=== PATIENT | female | born 1950 | race Caucasian/White ===

== ENCOUNTER 2022-08-01 19:03 | Inpatient (IN) | payer MEDICARE, OTHER ==
[~2022-08-01] VITALS: Ht 157.5 cm; Wt 85.7 kg
--- NOTE | 2022-08-01 19:43 | NUR ---
JAMES FROM [facility] C/O FEELING DEPRESSED. DENIES SUICIDAL.CODE STATUS POLST DNR. PT A/OX2. TOLERATING R/A WELL WITH NO SOB. SAFETY MEASURES AND SITTER AT PT'S BEDSIDE
--- NOTE | 2022-08-01 20:18 | NUR ---
CLINIC LPN AT PT'S BEDSIDE
[2022-08-01 20:57] LABS: BASOPHILS % (AUTO) 0.6 % (0.0-2.0); EOSINOPHILS % (AUTO) 2.8 % (0.0-6.0); HEMATOCRIT 36 % (33-45); HEMOGLOBIN 11.5 g/dL (11.5-14.8); LYMPHOCYTES # (AUTO) 1.3 K/uL (0.8-4.8); LYMPHOCYTES % (AUTO) 17.5 % (20.0-44.0); MEAN CORPUSCULAR HGB CONC 32 g/dl (31.0-36.0); MEAN CORPUSCULAR VOLUME 102 fL (82-100); MONOCYTES # (AUTO) 0.4 K/uL (0.1-1.30); MONOCYTES % (AUTO) 5.7 % (2.0-12.0); NEUTROPHILS # (AUTO) 5.4 K/uL (1.8-8.9); NEUTROPHILS % (AUTO) 73.4 % (43.0-81.0); PLATELET COUNT (AUTO) 214 K/uL (150-450); RED BLOOD CELL COUNT(AUTO) 3.55 MIL/uL (4.0-5.2); WHITE BLOOD COUNT (AUTO) 7.3 K/uL (4.3-11.0)
--- NOTE | 2022-08-01 21:15 | NUR ---
Benson elizabeth in EDM - 08/01/22 at 2249 by SRIRAM JAMES FROM [facility] C/O FEELING DEPRESSED. DENIES SUICIDAL.CODE STATUS POLST DNR. PT A/OX2. TOLERATING R/A WELL WITH NO SOB. SAFETY MEASURES AND SITTER AT PT'S BEDSIDE
[2022-08-01 21:23] LABS: ALANINE AMINOTRANSFERASE 15 U/L (12-78); ALBUMIN 3.9 g/dL (3.4-5.0); ALCOHOL, BLOOD < 3 mg/dL (0-0); ALKALINE PHOSPHATASE 161 U/L (46-116); ASPARTATE AMINOTRANSFERASE 8 U/L (15-37); BILIRUBIN,DIRECT 0.1 mg/dL (0.0-0.2); BILIRUBIN,TOTAL 0.2 mg/dL (0.2-1.0); CALCIUM, SERUM 8.4 mg/dL (8.5-10.1); CARBON DIOXIDE 26 mmol/L (21-32); CHLORIDE 104 mmol/L (98-107); CREATININE 3.7 mg/dL (0.6-1.3); GLUCOSE 268 mg/dL (74-106); POTASSIUM 5.3 mmol/L (3.5-5.1); SODIUM SERUM 136 mmol/L (136-145); TOTAL PROTEIN, SERUM 7.7 g/dL (6.4-8.2); UREA NITROGEN, BLOOD 52 mg/dL (7-18)
[2022-08-01 21:34] LABS: ACETAMINOPHEN 0 ug/ml (10-30)
[2022-08-01 22:27] LABS: BAND % (MANUAL) 3 % (0.0-5.0); LYMPHOCYTES % (MANUAL) 18 % (16-48); MONOCYTES % (MANUAL) 2 % (0-11.0); NEUTROPHILS % (MANUAL) 77 (42-76)
--- NOTE | 2022-08-01 22:29 | NUR ---
AUTOMATION TECH AT PT'S BEDSIDE
--- NOTE | 2022-08-01 22:45 | NUR ---
URINE COLLECTED AND SENT TO LAB
[2022-08-01 23:11] LABS: BILIRUBIN,URINE NEGATIVE (NEGATIVE); COLOR,URINE YELLOW (YELLOW); LEUKOCYTE ESTERASE ,URINE LARGE (NEGATIVE); NITRITE, URINE NEGATIVE (NEGATIVE); PROTEIN,URINE 100 mg/dl (NEGATIVE); UGLUCOSE NEGATIVE (NEGATIVE); UROBILINOGEN,URINE 0.2 EU/dL (0.2)
[2022-08-01 23:17] LABS: BACTERIA,URINE Many /HPF (None Seen); SQUAMOUS EPITHELIAL CELL,UR Few /HPF (None Seen); WBC,URINE 21-50 /HPF (0-3)
[2022-08-01] MEDS ORDERED: CEFTRIAXONE 1GM BAG (ER ONLY) 1 GM/50 ML PIGGYBACK IV ONE (23:30)
[2022-08-02] MEDS ORDERED: BLOOD SUGAR DIAGNOSTIC 1 EACH STRIP IN SCH
[2022-08-02] MEDS ORDERED: ONDANSETRON HCL/PF 4 MG/2 ML VIAL IVP PRN
[2022-08-02] MEDS ORDERED: INSULIN REGULAR, HUMAN 100 UNIT/ML 3 ML VIAL SQ PRN
[2022-08-02] MEDS ORDERED: MORPHINE SULFATE INJ 2 MG/ML DISP.SYRIN IV PRN
[2022-08-02] MEDS ORDERED: INSU100I26 SQ ×2 (00:27)
[2022-08-02] MEDS ORDERED: ASPI-1169 PO (00:27)
[2022-08-02] MEDS ORDERED: HYDR-4075 PO (00:27)
[2022-08-02] MEDS ORDERED: ESCI5TAB PO (00:27)
[2022-08-02] MEDS ORDERED: FOLI0.8T23 PO (00:27)
[2022-08-02] MEDS ORDERED: LINA5TAB PO (00:27)
[2022-08-02] MEDS ORDERED: METO50TA16 PO (00:27)
[2022-08-02] MEDS ORDERED: SEVE800T8 PO (00:27)
[2022-08-02] MEDS ORDERED: DOCU-141 PO (00:27)
[2022-08-02] MEDS ORDERED: GABA-532 PO (00:27)
[2022-08-02] MEDS ORDERED: ISOS30TA86 PO (00:27)
[2022-08-02] MEDS ORDERED: SENN-261 PO (00:27)
[2022-08-02] MEDS ORDERED: AMLO-213 PO (00:27)
[2022-08-02] MEDS ORDERED: CEFTRIAXONE 1GM BAG (ER ONLY) 50 ML IV ONE (00:32)
--- NOTE | 2022-08-02 01:04 | NUR ---
REPORT GIVEN TO ABIOLA GUAMAN.
[2022-08-02] MEDS: *INSULIN REGULAR(HUMULIN R)HUM 100 UNIT/ML VIAL SQ PRN ×2 (01:28→22:21)
[2022-08-02] MEDS: BLOOD SUGAR DIAGNOSTIC 1 EACH STRIP IN SCH ×5 (01:29→22:13)
[2022-08-02] MEDS ORDERED: DEXTROSE 50%-WATER 50 ML DISP.SYRIN IV PRN ×2 (01:30)
--- NOTE | 2022-08-02 01:36 | NUR ---
PT TRANSFERRING TO 3W VIA ACLS PROTOCOL. VSS. ALL BELONGINGS WITH PT.
[2022-08-02] MEDS: ACETAMINOPHEN 325 MG TABLET PO PRN (02:04)
[2022-08-02] MEDS: hydrALAZINE HCL IV 20 MG VIAL IV PRN (02:04)
[2022-08-02 02:33] VITALS: BP 175/65
--- NOTE | 2022-08-02 02:35 | NUR ---
ADMISSION NOTES patient brought up in unit at around 0133, accompanied by 1 er personnel, via [employer]. Patient is a/ox3. no s/s of apparent distress on room air. c/o headache and asking for Tylenol. patient wishes to be DNR/DNI and has POLST on chart. denies any thoughts of harming self. patient has lt. sided deficit from hx of CVA. Sacral wound picture taken. lt. hand #24g flushing well. rt. cw HD cath noted to be intact, dressing clean and dry. belonging checked, pt. wearing upper denture. patient reports having 4 COVID shots in the SNF but denies having flu and pneumonia immunization. patient refused immunizations. oriented in the unit and the use of call light, safety in place. will continue with patient's plan of care. patient emily NSR on tele monitor with 68 bpm.
--- NOTE | 2022-08-02 02:45 | NUR ---
bp 175/65 with c/o headache, given apresoline 10mg as ordered PRN and tylenol per patient request. will monitor and re-assess.
--- NOTE | 2022-08-02 02:47 | NUR ---
bp re-check 131/44, hr-62. patient states relief of headache.
[2022-08-02 02:52] VITALS: BP 131/44
[2022-08-02] MEDS: INSULIN REGULAR, HUMAN 100 UNIT/ML 3 ML VIAL SQ PRN ×2 (06:40→12:26)
[2022-08-02 06:53] LABS: BASOPHILS % (AUTO) 0.4 % (0.0-2.0); EOSINOPHILS % (AUTO) 3.2 % (0.0-6.0); HEMATOCRIT 36 % (33-45); HEMOGLOBIN 11.6 g/dL (11.5-14.8); LYMPHOCYTES # (AUTO) 1.1 K/uL (0.8-4.8); LYMPHOCYTES % (AUTO) 16.4 % (20.0-44.0); MEAN CORPUSCULAR HGB CONC 32 g/dl (31.0-36.0); MEAN CORPUSCULAR VOLUME 102 fL (82-100); MONOCYTES # (AUTO) 0.4 K/uL (0.1-1.30); MONOCYTES % (AUTO) 6.9 % (2.0-12.0); NEUTROPHILS # (AUTO) 4.7 K/uL (1.8-8.9); NEUTROPHILS % (AUTO) 73.1 % (43.0-81.0); PLATELET COUNT (AUTO) 199 K/uL (150-450); RED BLOOD CELL COUNT(AUTO) 3.56 MIL/uL (4.0-5.2); WHITE BLOOD COUNT (AUTO) 6.4 K/uL (4.3-11.0)
[2022-08-02 07:17] LABS: ALANINE AMINOTRANSFERASE 11 U/L (12-78); ALBUMIN 3.5 g/dL (3.4-5.0); ALKALINE PHOSPHATASE 137 U/L (46-116); ASPARTATE AMINOTRANSFERASE 10 U/L (15-37); BILIRUBIN,TOTAL 0.3 mg/dL (0.2-1.0); CALCIUM, SERUM 8.6 mg/dL (8.5-10.1); CARBON DIOXIDE 24 mmol/L (21-32); CHLORIDE 105 mmol/L (98-107); CREATININE 3.8 mg/dL (0.6-1.3); GLUCOSE 196 mg/dL (74-106); MAGNESIUM 2.1 mg/dL (1.8-2.4); PHOSPHORUS 4.8 mg/dL (2.5-4.9); POTASSIUM 5.2 mmol/L (3.5-5.1); SODIUM SERUM 138 mmol/L (136-145); UREA NITROGEN, BLOOD 56 mg/dL (7-18)
[2022-08-02 08:00] VITALS: BP 156/71
[2022-08-02] MEDS: CEFTRIAXONE 1 G in IV D5W 50 ML IV SCH (10:26)
[2022-08-02] MEDS: VIT B CMPLX 3/FA/VIT C/BIOTIN 1 TAB TABLET PO SCH (10:27)
[2022-08-02] MEDS: SEVELAMER CARBONATE 800 MG TABLET PO SCH ×3 (10:27→17:00)
[2022-08-02] MEDS: ISOSORBIDE MONONITRATE (30MG) 30 MG TAB.SR.24H PO SCH (10:28)
[2022-08-02] MEDS: ASPIRIN 81 MG TAB.CHEW PO SCH (10:28)
[2022-08-02] MEDS: GABAPENTIN 100 MG CAPSULE PO SCH ×2 (10:29→22:23)
[2022-08-02] MEDS: LINAGLIPTIN 5 MG TABLET PO SCH (10:29)
[2022-08-02] MEDS: METOPROLOL TARTRATE 50 MG TABLET PO SCH ×2 (10:29→17:00)
[2022-08-02] MEDS: DOCUSATE SODIUM 100 MG CAPSULE PO SCH ×2 (10:29→17:00)
[2022-08-02] MEDS: AMLODIPINE BESYLATE 10 MG TABLET PO SCH (10:31)
[2022-08-02] MEDS: INSULIN GLARGINE, 100 UNIT/ML CARTRIDGE SQ SCH ×2 (10:56→22:22)
[2022-08-02] MEDS: HEPARIN SODIUM, PORCINE 5000 UNITS/1 ML VIAL SQ SCH ×2 (10:57→22:22)
[2022-08-02 12:00] VITALS: BP 144/57
--- NOTE | 2022-08-02 18:53 | NUR ---
RN CLOSING NOTE PATIENT RECEIVED ON SHIFT IN BED AND AWAKE. A/O X3-4 AND ABLE TO VERBALIZE ALL NEEDS. IV ACCESS TO L-HAND REMAINED IN TACT AND PATENT ON SHIFT. SL AT THIS TIME. PATIENT REMAINS BEDRIDDEN LEFT SIDE IS WEAK/FLACCID. TOLERATED ALL MEALS AND MEDICATIONS WELL ON SHIFT. BLOOD SUGAR LEVELS 317 @ 1200 WITH 16 UNITS OF COVERAGE & 170 @ 1700 WITH NO COVERAGE GIVEN PATIENT WAS RECEIVING HEMODIALYSIS AT BEDSIDE. TOLERATING WELL WITH 1 MORE HOUR LEFT ON MACHINE. WILL ENDORSE TO RECEIVING NURSE. IV ANTIBIOTICS GIVEN ON SHIFT. TOLERATED WELL WITH NO S/SX OF ADVERSE REACTIONS. SAFETY MEASURES INTACT, CALL LIGHT WITHIN REACH. WILL CONT TO MONITOR
[2022-08-02 20:00] VITALS: BP 114/43
--- NOTE | 2022-08-02 20:32 | NUR ---
RN OPENING NOTE PATIENT AWAKE IN BED. A/OX3. NO S/S OF DISTRESS, BREATHING WITHOUT DIFFICULTY ON ROOM AIR. L-HAND #24 SL INTACT AND PATENT. SAFETY MEASURES IN PLACE: BED LOCKED, AT LOWEST POSITION, RAILS UP X2, CALL HARVEY WITHIN REACH. WILL CONTINUE TO MONITOR THE PATIENT.
[2022-08-02] MEDS: ESCITALOPRAM OXALATE (10 MG) 10 MG TABLET PO SCH (22:23)
[2022-08-03] VITALS: BP 117/48
[2022-08-03] MEDS: INSULIN REGULAR, HUMAN 100 UNIT/ML 3 ML VIAL SQ PRN ×3 (06:11→17:30)
--- NOTE | 2022-08-03 06:32 | NUR ---
RN CLOSING NOTE PATIENT AWAKE IN BED WATCHING TV. A/OX4. NO S/S OF DISTRESS, BREATHING WITHOUT DIFFICULTY ON ROOM AIR. RCW WITHOUT BLEEDING OR S/S OF DISLODGMENT. TELE READS SR 64 W/ 1ST DEGREE BLOCK. SAFETY MEASURES IN PLACE: BED LOCKED AND AT LOWEST POSITION, RAILS UP X2, CALL HARVEY WITHIN REACH. WILL ENDORSE TO NEXT SHIFT FOR KODY.
[2022-08-03] MEDS: BLOOD SUGAR DIAGNOSTIC 1 EACH STRIP IN SCH ×4 (06:34→21:43)
[2022-08-03 06:36] LABS: BASOPHILS % (AUTO) 0.3 % (0.0-2.0); EOSINOPHILS % (AUTO) 2.6 % (0.0-6.0); HEMATOCRIT 36 % (33-45); HEMOGLOBIN 11.7 g/dL (11.5-14.8); LYMPHOCYTES # (AUTO) 0.8 K/uL (0.8-4.8); LYMPHOCYTES % (AUTO) 12.4 % (20.0-44.0); MEAN CORPUSCULAR HGB CONC 33 g/dl (31.0-36.0); MEAN CORPUSCULAR VOLUME 100 fL (82-100); MONOCYTES # (AUTO) 0.4 K/uL (0.1-1.30); MONOCYTES % (AUTO) 6.4 % (2.0-12.0); NEUTROPHILS # (AUTO) 5.1 K/uL (1.8-8.9); NEUTROPHILS % (AUTO) 78.3 % (43.0-81.0); PLATELET COUNT (AUTO) 184 K/uL (150-450); RED BLOOD CELL COUNT(AUTO) 3.55 MIL/uL (4.0-5.2); WHITE BLOOD COUNT (AUTO) 6.5 K/uL (4.3-11.0)
[2022-08-03 07:35] LABS: CALCIUM, SERUM 8.4 mg/dL (8.5-10.1); CARBON DIOXIDE 26 mmol/L (21-32); CHLORIDE 101 mmol/L (98-107); CREATININE 2.7 mg/dL (0.6-1.3); GLUCOSE 135 mg/dL (74-106); MAGNESIUM 1.8 mg/dL (1.8-2.4); PHOSPHORUS 3.2 mg/dL (2.5-4.9); POTASSIUM 4.6 mmol/L (3.5-5.1); SODIUM SERUM 134 mmol/L (136-145); UREA NITROGEN, BLOOD 37 mg/dL (7-18)
[2022-08-03 08:00] VITALS: BP 151/64
--- NOTE | 2022-08-03 08:00 | NUR ---
RN NOTE- PATIENT AWAKE IN BED. A/OX3. NO S/S OF DISTRESS, BREATHING WITHOUT DIFFICULTY ON ROOM AIR. NEW HEP LOCK PLACED SKYE. #22G SAFETY MEASURES IN PLACE: BED LOCKED, AT LOWEST POSITION, RAILS UP X2, CALL HARVEY WITHIN REACH. WILL CONTINUE TO MONITOR / ASSIST
[2022-08-03] MEDS: AMLODIPINE BESYLATE 10 MG TABLET PO SCH (09:25)
[2022-08-03] MEDS: VIT B CMPLX 3/FA/VIT C/BIOTIN 1 TAB TABLET PO SCH (09:25)
[2022-08-03] MEDS: LINAGLIPTIN 5 MG TABLET PO SCH (09:25)
[2022-08-03] MEDS: SEVELAMER CARBONATE 800 MG TABLET PO SCH ×4 (09:25→17:19)
[2022-08-03] MEDS: ISOSORBIDE MONONITRATE (30MG) 30 MG TAB.SR.24H PO SCH (09:26)
[2022-08-03] MEDS: METOPROLOL TARTRATE 50 MG TABLET PO SCH ×3 (09:26→17:20)
[2022-08-03] MEDS: GABAPENTIN 100 MG CAPSULE PO SCH ×2 (09:27→21:42)
[2022-08-03] MEDS: DOCUSATE SODIUM 100 MG CAPSULE PO SCH ×3 (09:27→17:20)
[2022-08-03] MEDS: ASPIRIN 81 MG TAB.CHEW PO SCH (09:27)
[2022-08-03] MEDS: HEPARIN SODIUM, PORCINE 5000 UNITS/1 ML VIAL SQ SCH ×2 (09:27→21:42)
[2022-08-03] MEDS: INSULIN GLARGINE, 100 UNIT/ML CARTRIDGE SQ SCH ×2 (09:31→21:48)
[2022-08-03] MEDS: CEFTRIAXONE 1 G in IV D5W 50 ML IV SCH (10:13)
[2022-08-03 12:00] VITALS: BP 152/62
[2022-08-03 16:00] VITALS: BP 122/57
--- NOTE | 2022-08-03 17:24 | NUR ---
RN NOTE-1700 RX HELD PT HAVING HD
--- NOTE | 2022-08-03 19:18 | NUR ---
RN CLOSING NOTE- HD CONTINUES, PATIENT AWAKE IN BED. A/OX3. NO S/S OF DISTRESS, BREATHING WITHOUT DIFFICULTY ON ROOM AIR. NEW HEP LOCK PLACED SKYE. #22G SAFETY MEASURES IN PLACE: BED LOCKED, AT LOWEST POSITION, RAILS UP X2, CALL HARVEY WITHIN REACH. WILL CONTINUE TO MONITOR / ASSIST
--- NOTE | 2022-08-03 19:30 | NUR ---
MEDICAL ECONOMICS CONSULTANT OPENING NOTES RECEIVED PATIENT LYING IN BED WITH EYES CLOSED. EASY TO AROUSE. UNDERGOING HD. A/OX3. NOT IN APPARENT DISTRESS. BREATHING EVEN AND NON-LABORED ON ROOM AIR. HAS LEFT UPPER ARM IV ACCESS #22G AND SALINE LOCKED. NO S/S OF INFILTRATION NOTED. SAFETY MEASURES IN PLACE: BED LOCKED AND IN LOWEST POSITION, SIDE RAILS UP X2, CALL HARVEY WITHIN REACH. WILL CONTINUE TO POC. Addendum: 08/03/22 at 2039 by March PORFIRIO RN ON TELE MONITOR READING SINUS RHYTHM AT 65 BPM.
[2022-08-03 20:00] VITALS: BP 114/62
--- NOTE | 2022-08-03 20:00 | NUR ---
DETECTIVE INVESTIGATOR NOTES HD DONE. 1.5L OUT, BP 115/63, HR 59.
[2022-08-03] MEDS: ESCITALOPRAM OXALATE (10 MG) 10 MG TABLET PO SCH (21:49)
[2022-08-03] MEDS: *INSULIN REGULAR(HUMULIN R)HUM 100 UNIT/ML VIAL SQ PRN (21:59)
[2022-08-04] VITALS: BP 166/55
--- NOTE | 2022-08-04 00:15 | NUR ---
CLAIM EXAMINER NOTES NOTIFIED CN ULISSES PT BP 166/55. PER CN, NO NEED TO NOTIFY MD, WILL CONTINUE TO MONITOR.
[2022-08-04 04:00] VITALS: BP 152/57
[2022-08-04] MEDS: BLOOD SUGAR DIAGNOSTIC 1 EACH STRIP IN SCH ×4 (06:55→21:23)
[2022-08-04] MEDS: INSULIN REGULAR, HUMAN 100 UNIT/ML 3 ML VIAL SQ PRN ×3 (06:57→16:39)
--- NOTE | 2022-08-04 07:00 | NUR ---
PERFORMANCE TEST ARCHITECT CLOSING NOTES PATIENT LYING IN BED AWAKE, ABLE TO VERBALIZE NEEDS. A/O X3, PATIENT INSISTS ON GOING HOME. EXPLAINED SHE NEEDS TO WAIT FOR MD ORDER. VERBALIZED UNDERSTANDING. NO SOB OR NOTED, TOLERATING ROOM AIR WELL. DENIES PAIN AT THIS TIME. AFEBRILE. ON TELE MONITOR READING SINUS RHYTHM AT 63 BPM. HAS LEFT UPPER ARM IV ACCESS #22G AND SALINE LOCKED. INTACT, PATENT AND FLUSHING. ALL DUE MEDS GIVEN AND NEEDS ATTENDED. SAFETY MEASURES MAINTAINED: BED LOCKED AND IN LOWEST POSITION, SIDE RAILS UP X2, CALL LIGHT WITHIN REACH. WILL ENDORSE FOR KODY.
--- NOTE | 2022-08-04 07:30 | NUR ---
COMPTOMETER OPERATOR OPENING NOTES: RECEIVED PATIENT ASLEEP BUT EASILY ROUSED, ABLE TO VERBALIZE NEEDS. A/O X3 WITH EPISODED OF FORGETFULNESS AND CONFUSION. NO S/S OF SOB NOTED, TOLERATING ROOM AIR WELL. DENIES PAIN AT THIS TIME. ON TELE MONITOR READING SINUS RHYTHM AT 66 BPM. IV ACCESS @ LFA #22G AND SALINE LOCKED. INTACT, PATENT AND FLUSHING. R CW HD CATH NOTED. SAFETY MEASURES MAINTAINED: BED LOCKED AND IN LOWEST POSITION, SIDE RAILS UP X2, CALL LIGHT WITHIN REACH, WILL CARRY OUT PLAN OF CARE DURING SHIFT. .
[2022-08-04 07:57] LABS: CALCIUM, SERUM 8.5 mg/dL (8.5-10.1); CARBON DIOXIDE 24 mmol/L (21-32); CHLORIDE 97 mmol/L (98-107); CREATININE 2.4 mg/dL (0.6-1.3); GLUCOSE 164 mg/dL (74-106); MAGNESIUM 1.9 mg/dL (1.8-2.4); PHOSPHORUS 3.6 mg/dL (2.5-4.9); POTASSIUM 5.3 mmol/L (3.5-5.1); SODIUM SERUM 130 mmol/L (136-145); UREA NITROGEN, BLOOD 28 mg/dL (7-18)
[2022-08-04 08:00] VITALS: BP 134/58
[2022-08-04] MEDS: AMLODIPINE BESYLATE 10 MG TABLET PO SCH (09:00)
[2022-08-04] MEDS: INSULIN GLARGINE, 100 UNIT/ML CARTRIDGE SQ SCH ×2 (09:00→21:28)
[2022-08-04] MEDS: METOPROLOL TARTRATE 50 MG TABLET PO SCH ×2 (09:00→16:27)
[2022-08-04] MEDS: CEFTRIAXONE 1 G in IV D5W 50 ML IV SCH (09:01)
[2022-08-04] MEDS: GABAPENTIN 100 MG CAPSULE PO SCH ×2 (09:02→21:11)
[2022-08-04] MEDS: ASPIRIN 81 MG TAB.CHEW PO SCH (09:02)
[2022-08-04] MEDS: ISOSORBIDE MONONITRATE (30MG) 30 MG TAB.SR.24H PO SCH (09:10)
[2022-08-04] MEDS: DOCUSATE SODIUM 100 MG CAPSULE PO SCH ×2 (09:11→16:27)
[2022-08-04] MEDS: SEVELAMER CARBONATE 800 MG TABLET PO SCH ×3 (09:11→16:26)
[2022-08-04] MEDS: LINAGLIPTIN 5 MG TABLET PO SCH (09:11)
[2022-08-04] MEDS: VIT B CMPLX 3/FA/VIT C/BIOTIN 1 TAB TABLET PO SCH (09:11)
[2022-08-04] MEDS: HEPARIN SODIUM, PORCINE 5000 UNITS/1 ML VIAL SQ SCH ×2 (09:20→21:28)
[2022-08-04 11:39] VITALS: BP 141/51
[2022-08-04 11:48] LABS: BASOPHILS % (AUTO) 0.5 % (0.0-2.0); EOSINOPHILS % (AUTO) 1.9 % (0.0-6.0); HEMATOCRIT 36 % (33-45); HEMOGLOBIN 11.7 g/dL (11.5-14.8); LYMPHOCYTES # (AUTO) 0.9 K/uL (0.8-4.8); LYMPHOCYTES % (AUTO) 15.1 % (20.0-44.0); MEAN CORPUSCULAR HGB CONC 33 g/dl (31.0-36.0); MEAN CORPUSCULAR VOLUME 100 fL (82-100); MONOCYTES # (AUTO) 0.4 K/uL (0.1-1.30); MONOCYTES % (AUTO) 5.9 % (2.0-12.0); NEUTROPHILS # (AUTO) 4.7 K/uL (1.8-8.9); NEUTROPHILS % (AUTO) 76.6 % (43.0-81.0); PLATELET COUNT (AUTO) 159 K/uL (150-450); RED BLOOD CELL COUNT(AUTO) 3.59 MIL/uL (4.0-5.2); WHITE BLOOD COUNT (AUTO) 6.2 K/uL (4.3-11.0)
[2022-08-04] MEDS: ACETAMINOPHEN 325 MG TABLET PO PRN (12:59)
[2022-08-04 16:19] VITALS: BP 126/55
--- NOTE | 2022-08-04 16:50 | NUR ---
SS note: SS consult for possible SI. The pt. is a 72 year old Chinese female who was BIBRA after pt. reportedly made suicidal remarks and wrapped the a cord around her neck. SW met with pt. at bedside. The pt. is alert 7 oriented x 4 makes good eye contact. The pt. appears well-groomed with depressed mood & affect. SW assessed for SI. The pt. reports that she has gotten into an argument with her sister, Cortney Hidalgo [phone] while she visited her at her SNF. The pt. did not want to disclose what the verbal argument was about but she stated she "was not really suicidal" or intended to hurt or kill herself. However, pt. admits that she did tell her sister, "so that this all ends, I will just kill myself" and pt. admits she wrapped the call light around her neck and did not actually pull the cord or intend to. Pt. states she just wanted to get reaction from her sister. The pt. denies current SI/HI and denies hallucinations.The pt. has fair insight and stated she has seen a psychiatrist in the past who prescribed her medication for symptoms of depression. Pt. states she is complaint with the medication and she feels it does help her. SW confirmed with pt.'s nurse and pt. is on Lexapro 2.5 mg. DC Plan: The pt. states she wished to return to [facility] [phone] as soon as possible. RA provided pt. with the following mental health and senior resources and pt. accepted them. RA discussed DC plan with Jimenez DIAZ and Maame BOSWELL. Counseling--[facility] [place] [address] [place] [address] (Specializes in in-depth psychotherapy for emotional distress: anxiety, depression, interpersonal conflicts, life transitions, childhood abuse) Community [facility] [address] [place] [address] (Assist with solving problem marital difficulties, separation & divorce, aging parents, & grief, chronic & terminal illness) [facility] [address] [place] [address] (Deal with loss & grief, anxiety, marital difficulties) Homebound/Mental Health Services [address] [place] [address] (Provide in-home mental services to people who are incapable of leaving their homes) Organization for Needs of the Elderly Senior Service/Resource Center [address] [place] [address] [facility] [address] [address] PSYCHIATRIC OUTPATIENT SERVICES [facility] Partial Hospitalization and Intensive Outpatient Program (Managed Care and Cabrera Only) [address] [facility] [address]; [phone] [facility] Partial Hospitalization and Outpatient Program [address] [place] [address]; [phone] [facility] Mental Health Center [address] [place], [place] [phone] [facility] Partial Hospitalization and Outpatient [address] [place], [place] ; [phone] ;[phone] [facility] [address] [place] [address] Mental Health Services Sydney Rolando [place] [address] [place] [address] Services: Outpatient therapy for children, teens, young adults, adults, older adults, and families; Psychiatric services, medication support [place] Crisis and Hotline Telephone Numbers: 24-Hour service unless stated [place] Mental Health/Crisis Line........[phone] Suicide Prevention Center (24 Hours).......[phone] Suicide Prevention Crisis Center.......[phone] (24 Hours) Alcoholics Anonymous (24 Hours)..........478.616.6088 National Crisis Hotlines: Alcohol and Drug Helpline - Provides referrals to local facilities where adolescents and adults can seek help. Brief intervention. CASIMIRO Helpline National [place] for the Mentally Ill 3-507-451-CDRV National Youth Crisis Hotline Center Mental Health Assn. Provides free information on specific disorders, referral directory to mental health providers, national directory of local mental health associations (M-F, 9-5 EST) National [place] of Mental Health Information Line: Provide sinformation and literature on mental illness by disorder-for professionals and general public. ABUSE PREVENTION: ELDER ABUSE HOTLINE (22/05) ADULT PROTECTIVE SERVICES HOTLINE LONG-TERM CARE [facility] Region AREA ON AGING (HOTLINE) ADULT DAY HEALTH CARE CARE CENTERS: Private pay or [facility] funded adult day care [facility] Day Health Care [facility] , [facility] Services , [facility] Adult Care Center , [facility] Adult Day Health Care , [facility] Adult Day Health Care , [facility] Adult Daycare Center , [place] ONE Generation [place] , [facility] Adult [place] , [place] ALZHEIMERS DISEASE/DEMENTIA: Alzheimers Association Helpline [facility] Chapter www.alz.org/[facility] Department of Aging www.lacity.org Family Caregiver [place] www.caregiver.org [place] Caregiver Resources Center/Family Support www.losangelesscrc.org CANCER RESOURCES: [place] Cancer Society www.cancer.org Cancer Support Community www.CancerSupportVvsb.org: CancerCare www.cancercare.org [facility] Cancer Support Center www.[facility].org COMMUNITY HEALTH ASSOCIATIONS: AARP www.aarp.org ALS Association (ask for Rafaela) www.als.org [place] Diabetes Association www.diabetes.org [place] Heart Association www.heart.org [place] Lung Association www.lungusa.org [place] Parkinson Disease Association www.apdaparkinson.org [place] Ocean Breeze , www.redcross.org Arthritis Foundation www.arthritis.org Crohns & Colitis Foundation of [place] www.ccfa.org/chapters/merlin National Multiple Sclerosis Society www.nationalmssociety.org Myasthenia Gravis Foundation www.myasthenia-ca.org National Stroke Association www.stroke.org CONSERVATORSHIP & GUARDIANSHIP: AARP Shanique Marcum Legal Services Center for Health Care Rights Eldercare Information and Referral Supervisor Major Appliance Assembly [facility]: [facility] Bar Referral Service [facility] Legal Services Office of the Public Guardian [place] EYESIGHT DISORDER RESOURCES: [place] Macular Degeneration Foundation [facility] [place] www.carmeninstitute.org GRIEF AND BEREAVEMENT RESOURCES: The [place]athering Place , [facility] THE CRAIG Connection , [facility] Bereavement Center , [place] HEARING DISORDER RESOURCES: [place] Telephone Access Program Deaf and Disabled Telecommunications Program www.ddtp.cpu.ca.gov HearRx Hearing Centers ([place]) Better Hearing Systems , [place] GLAD ([facility] Agency on Deafness) V/ TTY; Tube Carrier , [facility] Hearing Foundation -low income hearing aid assistance www.christianacarehearingfoundation.org Independence Hearing Care , Stephany HELP AT HOME CAREGIVER SUPPORT: In Home Support Services (Must have Medi-Cristi to be eligible) *Ask for a list of agencies that provide services to assist with care in the home. Local Senior Centers also have listings of care providers. HOME SAFETY MODIFICATIONS AND EQUIPMENT: Senior centers have additional referrals. PR [facility] and Community Investment Dept. Handyworker Program (low income) or Visit http://hcidla.multicare healthity.org/qal-izukpo-fy for more information National Seating and Mobility and/or ; Forever Active www.foreverDynmark International.Betable Stay Home Safe www.Stayhomesafe.com LIFE ALERT RESPONSE SYSTEM: [place] Lifeline Services 317-983-1001 www. LifeGRUZOBZORys.com Life Alert 309-595-8795 www.lifealert.com Life Station 329-378-0183 www.Proxim Wireless.Betable Safe Return 094-221-7136 www.alz.or/safereturn Cell Phones for Seniors www.Ignyta MEALS AND FOOD PROGRAMS: [place] Meals on Wheels [phone] [place] Meals on Wheels [phone] [facility] [phone] [place] to the Homebound [phone] [place] to the Homebound [phone] [facility] to the Homebound [phone] [facility] to the Homebound [phone] Ajay Saleh Tacho [phone] WandaUnm [facility] [phone] ONE Generation [phone] [facility] [phone] [facility] [phone] Meals on Wheels [phone] For all ages: $6.85/ meal w side. Delivered M-F from 10 am-1pm. Application and payment is done over the phone. Frozen meals available for weekends. Symbiotec Pharmalab Food [facility] [phone] [facility] Tastemade [phone] [facility] [phone] [facility]- Brown bag lunches [phone] [facility] [phone] MEAL/GROCERY DELIVERY PROGRAMS: [facility] Socialtext Gourmet Meals [phone]- [facility] [phone]- [facility] Mag Kitchen [phone] Moms Meals [phone] (ask [place] for Discount Select grocery stores may provide delivery. MEDICAL INSURANCE SUPPORT SERVICES: Center for Health Care Rights [phone] Health Insurance Counseling/Advocacy Programs (HICAP)-Must have Medicare. Offers counseling for Medi-Cristi eligibility [phone] Department of Public Electrical Controls Designer [phone] www.cs.ca.gov Medicare 472-626-6944 www.socialsecurity.org Social Security [phone] SENIOR ACTIVITY PROGRAMS: *Contact a local senior center, adult school, recreation facility or community college for education, fitness, recreation, and social programs. Aquatic Therapy and Adapted Exercise programs through [facility] [phone] Encore at [facility] [phone] www.[facility]/encore U- Senior Friends [phone] [place] Senior Programs [phone] www.oasisnet.org Suddenly 65 www.eqrttnwo21.Betable SENIOR CENTERS: [facility] Center [phone] [facility] Hospital[facility] [phone] [facility] [phone] [facility] [phone] [facility] [phone] [facility] [phone] [facility] [phone] [facility] [phone] One [facility] [phone] [facility] [phone] [facility] [phone] [facility] [phone] [facility] [phone] TRANSPORTATION: Local [facility] may have applications for transportation programs and additional resources. ACCESS Services [phone] Transportation for seniors and disabled persons 7 days a week requiring 254 hr. advance reservation. Must apply and register for program hanna eligible. Holograam [phone] or [phone] Transportation for seniors and persons with ADA card/metro disabled card in the [facility]. M-F only. Must register for services. ONE GENERATION [phone] Serves 65 years + in conjunction with [employer] program. Must be registered with both programs. A to B Transport [phone] Provides wheelchair/gurney van service. Adult Medical Transport [phone] Accepts [facility] with prior authorization. Care Van [phone] Provides wheelchair Transport. City Wide Transportation [phone] Provides gurney service Gentle Care [phone] Gurney Transport. [facility] Transportation [phone] wheelchair & gurney transport [facility] Transportation [phone] wheelchair & gurney transport [place] Non-Emergency Transport [phone] wheelchair & gurney transport [facility] [phone] Short Term Transportation primarily for adults with disabilities on social security income. Nominal fee may apply and a reservation is required. [facility] Cab [phone] or [phone] Futuretec [facility] Hospital[facility] Services Private Limited [phone] [place] [address] Referral Services -[phone] For additional programs & services VETERANS RESOURCES: Submissions for Aid and Attendance should be done directly to [facility] office locatd at : [address] [address] X110 National Caregiver Support Line [phone] [facility] Veterans Services Field Office [phone] [place] Department of [place] Affairs [phone] Pension Information [phone]
--- NOTE | 2022-08-04 18:15 | NUR ---
CHOKER HOOKER CLOSING NOTES: PATIENT LYING IN BED AWAKE, ABLE TO VERBALIZE NEEDS. A/O X2-3 WITH PERIODS OF CONFUSION AND FORGETFULNESS. NO S/S OF SOB NOTED, TOLERATING ROOM AIR WELL. DENIES PAIN AT THIS TIME. ON TELE MONITOR READING SINUS RHYTHM AT 65 BPM. HAS LEFT UPPER ARM IV ACCESS #20GM, SALINE LOCKED; INTACT, PATENT AND FLUSHING. ALL DUE MEDS GIVEN AND NEEDS ATTENDED. S/P HEMODIALYSIS 08/04/2022 @ 1400. PT KEPT CLEAN AND DRY. SAFETY MEASURES MAINTAINED: BED LOCKED AND IN LOWEST POSITION, SIDE RAILS UP X2, CALL LIGHT AND TABLE WITHIN REACH, WILL ENDORSE TO PM SHIFT.
--- NOTE | 2022-08-04 19:30 | NUR ---
ICE CREAM MAN OPENING NOTES RECEIVED PATIENT LYING IN BED AWAKE. A/O X2-3. BREATHING EVEN AND NON-LABORED ON ROOM AIR, SATURATING AT 96%. NOT IN APPARENT DISTRESS. NO C/O PAIN OR DISCOMFORT. ON TELE MONITOR READING SINUS RHYTHM AT 64 BPM. HAS LEFT UPPER ARM IV ACCESS #20G AND SALINE LOCKED. NO S/S OF INFILTRATION NOTED. HAS RIGHT CHEST WALL HD CATHETER, DRESSING C/D/I. SAFETY PRECAUTIONS IN PLACE: BED LOCKED AND IN LOWEST POSITION, SIDE RAILS UP X 2, CALL LIGHT WITHIN REACH. WILL CONTINUE POC.
[2022-08-04] MEDS: ESCITALOPRAM OXALATE (10 MG) 10 MG TABLET PO SCH (21:11)
[2022-08-04] MEDS: *INSULIN REGULAR(HUMULIN R)HUM 100 UNIT/ML VIAL SQ PRN (21:27)
[2022-08-04 21:32] VITALS: BP 110/48
[2022-08-05] VITALS: BP 128/61
[2022-08-05 04:22] VITALS: BP 135/56
--- NOTE | 2022-08-05 06:15 | NUR ---
SMALL PRODUCTS II ASSEMBLER NOTES RECEIVED CALL FROM RAAD HD RN ASKING IF PATIENT WANTS HD TODAY SINCE SHE IS ALREADY ON D/C PLANNING. PATIENT SAID YES.
--- NOTE | 2022-08-05 06:27 | NUR ---
PREPPER CLOSING NOTES PATIENT LYING IN BED AWAKE. A/O X2-3. NO SOB OR NOTED, TOLERATING ROOM AIR WELL. DENIES PAIN AT THIS TIME. AFEBRILE. ON TELE MONITOR READING SINUS RHYTHM/BRADYCARDIA AT 57-61 BPM. HAS LEFT UPPER ARM IV ACCESS #20G AND SALINE LOCKED. INTACT, PATENT AND FLUSHING. RIGHT CHEST WALL HD CATHETER INTACT. ALL DUE MEDS GIVEN AND NEEDS ATTENDED. SAFETY PRECAUTIONS MAINTAINED. WILL ENDORSE TO NEXT SHIFT FOR KODY.
[2022-08-05 06:29] LABS: BASOPHILS % (AUTO) 0.3 % (0.0-2.0); EOSINOPHILS % (AUTO) 2.3 % (0.0-6.0); HEMATOCRIT 35 % (33-45); HEMOGLOBIN 11.6 g/dL (11.5-14.8); LYMPHOCYTES # (AUTO) 0.9 K/uL (0.8-4.8); LYMPHOCYTES % (AUTO) 13.1 % (20.0-44.0); MEAN CORPUSCULAR HGB CONC 33 g/dl (31.0-36.0); MEAN CORPUSCULAR VOLUME 100 fL (82-100); MONOCYTES # (AUTO) 0.5 K/uL (0.1-1.30); MONOCYTES % (AUTO) 8.2 % (2.0-12.0); NEUTROPHILS # (AUTO) 5.1 K/uL (1.8-8.9); NEUTROPHILS % (AUTO) 76.1 % (43.0-81.0); PLATELET COUNT (AUTO) 155 K/uL (150-450); RED BLOOD CELL COUNT(AUTO) 3.54 MIL/uL (4.0-5.2); WHITE BLOOD COUNT (AUTO) 6.6 K/uL (4.3-11.0)
[2022-08-05] MEDS: BLOOD SUGAR DIAGNOSTIC 1 EACH STRIP IN SCH ×4 (06:33→21:14)
[2022-08-05] MEDS: INSULIN REGULAR, HUMAN 100 UNIT/ML 3 ML VIAL SQ PRN ×3 (06:34→17:39)
[2022-08-05 06:51] LABS: CALCIUM, SERUM 8.7 mg/dL (8.5-10.1); CARBON DIOXIDE 26 mmol/L (21-32); CHLORIDE 96 mmol/L (98-107); CREATININE 2.4 mg/dL (0.6-1.3); GLUCOSE 138 mg/dL (74-106); MAGNESIUM 1.9 mg/dL (1.8-2.4); PHOSPHORUS 4.1 mg/dL (2.5-4.9); POTASSIUM 4.3 mmol/L (3.5-5.1); SODIUM SERUM 130 mmol/L (136-145); UREA NITROGEN, BLOOD 27 mg/dL (7-18)
--- NOTE | 2022-08-05 07:33 | NUR ---
VALUE STREAM LEADER OPENING NOTES: RECEIVED PATIENT ASLEEP BUT EASILY ROUSED, ABLE TO VERBALIZE NEEDS. A/O X3 WITH EPISODES OF FORGETFULNESS AND CONFUSION. NO S/S OF SOB NOTED, TOLERATING ROOM AIR WELL. DENIES PAIN AT THIS TIME. ON TELE MONITOR READING SINUS RHYTHM AT 66 BPM. IV ACCESS @ LFA #22G AND SALINE LOCKED. INTACT, PATENT AND FLUSHING. R CW HD CATH NOTED. SAFETY MEASURES MAINTAINED: BED LOCKED AND IN LOWEST POSITION, SIDE RAILS UP X2, CALL LIGHT WITHIN REACH, WILL CARRY OUT PLAN OF CARE DURING SHIFT.
[2022-08-05] MEDS: INSULIN GLARGINE, 100 UNIT/ML CARTRIDGE SQ SCH ×2 (09:00→21:21)
--- NOTE | 2022-08-05 09:46 | NUR ---
WOUND CARE CONSULT: PT PRESENTS WITH SACRAL SCARRING WHICH EXTENDS TO BUTTOCKS AND SOME INCONTINENCE ASSOCIATED SKIN DAMAGE TO LEFT BUTTOCK, PRESENT ON ADMISSION. RECOMMENDATIONS MADE FOR SKIN PROTECTION. DISCUSSED WITH NURSING STAFF.MD IN AGREEMENT WITH PLAN OF CARE.
[2022-08-05] MEDS: ASPIRIN 81 MG TAB.CHEW PO SCH (09:54)
[2022-08-05] MEDS: HEPARIN SODIUM, PORCINE 5000 UNITS/1 ML VIAL SQ SCH ×2 (09:55→21:22)
[2022-08-05] MEDS: VIT B CMPLX 3/FA/VIT C/BIOTIN 1 TAB TABLET PO SCH (09:57)
[2022-08-05] MEDS: METOPROLOL TARTRATE 50 MG TABLET PO SCH ×2 (09:59→17:53)
[2022-08-05] MEDS: AMLODIPINE BESYLATE 10 MG TABLET PO SCH (09:59)
[2022-08-05] MEDS: DOCUSATE SODIUM 100 MG CAPSULE PO SCH ×2 (09:59→17:43)
[2022-08-05] MEDS: LINAGLIPTIN 5 MG TABLET PO SCH (09:59)
[2022-08-05] MEDS: ISOSORBIDE MONONITRATE (30MG) 30 MG TAB.SR.24H PO SCH (10:00)
[2022-08-05] MEDS: SEVELAMER CARBONATE 800 MG TABLET PO SCH ×3 (10:00→17:39)
[2022-08-05] MEDS ORDERED: Z GUARD REMEDY 4 OZ OINT TP PRN (10:00)
[2022-08-05] MEDS: GABAPENTIN 100 MG CAPSULE PO SCH ×2 (10:00→21:15)
[2022-08-05] MEDS: Z GUARD REMEDY 4 OZ OINT TP SCH (10:06)
--- NOTE | 2022-08-05 19:40 | NUR ---
GAMMA RAY OPERATOR CLOSING NOTES: PATIENT LYING IN BED AWAKE, ABLE TO VERBALIZE NEEDS. A/O X2-3 WITH PERIODS OF CONFUSION AND FORGETFULNESS. NO S/S OF SOB NOTED, TOLERATING ROOM AIR WELL. DENIES PAIN AT THIS TIME. ON TELE MONITOR READING SINUS RHYTHM AT 65 BPM. HAS LEFT UPPER ARM IV ACCESS #20GM, SALINE LOCKED; INTACT, PATENT AND FLUSHING. ALL DUE MEDS GIVEN AND NEEDS ATTENDED. S/P HEMODIALYSIS 08/05/2022 @ 1030. PT KEPT CLEAN AND DRY. SAFETY MEASURES MAINTAINED: BED LOCKED AND IN LOWEST POSITION, SIDE RAILS UP X2, CALL LIGHT AND TABLE WITHIN REACH, WILL ENDORSE TO PM SHIFT.
--- NOTE | 2022-08-05 19:43 | NUR ---
RN OPENING NOTE PATIENT ASLEEP IN BED. A/OX3. NO S/S OF DISTRESS, BREATHING WITHOUT DIFFICULTY ON ROOM AIR. SKYE #20 SL INTACT AND PATENT; RCW HD CATH. TELE READS SR 62. SAFETY MEASURES IN PLACE: BED LOCKED AND AT LOWEST POSITION, RAILS UP X2, CALL HARVEY WITHIN REACH. WILL CONTINUE TO MONITOR PATIENT.
[2022-08-05 20:00] VITALS: BP 164/59
[2022-08-05] MEDS: ESCITALOPRAM OXALATE (10 MG) 10 MG TABLET PO SCH (21:15)
[2022-08-05] MEDS: *INSULIN REGULAR(HUMULIN R)HUM 100 UNIT/ML VIAL SQ PRN (21:20)
[2022-08-06] VITALS: BP 165/41
[2022-08-06] MEDS: hydrALAZINE HCL IV 20 MG VIAL IV PRN (03:57)
[2022-08-06 04:00] VITALS: BP 180/60
--- NOTE | 2022-08-06 05:35 | NUR ---
RN NOTE IT WAS REPORTED TO THIS RN BY THE LUMBER TALLIER THAT THE PATIENT HAD A BP OF 167/56 (PER MACHINE). THIS RN RECHECKED BY SPHYGMOMANOMETER REVEALING 180/60 @0345. PRN ALPRESOLINE 10MG WAS ADMINISTERED. A RECHECK SHOWS A BP OF 146/70. AT THE INITIAL FINDING ALL THE WAY TO PRESENT, PATIENT REMAINED STABLE; PATIENT DENIED DIZZINESS, HEADACHE, OR BLURRED VISION. WILL CONTINUE TO MONITOR PATIENT.
[2022-08-06] MEDS: INSULIN REGULAR, HUMAN 100 UNIT/ML 3 ML VIAL SQ PRN ×3 (06:38→17:23)
--- NOTE | 2022-08-06 06:49 | NUR ---
RN CLOSING NOTE PATIENT AWAKE IN BED. A/OX3. NO S/S OF DISTRESS, BREATHING WITHOUT DIFFICULTY ON ROOM AIR. SKYE #20 SL INTACT AND PATENT. TELE READS SR 64. SAFETY MEASURES IN PLACE: BED LOCKED IN PLACE AND AT LOWEST POSITION, RAILS UP X2, CALL HARVEY WITHIN REACH. WILL ENDORSE TO NEXT SHIFT FOR KODY.
[2022-08-06] MEDS: BLOOD SUGAR DIAGNOSTIC 1 EACH STRIP IN SCH ×4 (07:51→21:39)
[2022-08-06 08:00] VITALS: BP 149/100
--- NOTE | 2022-08-06 08:06 | NUR ---
RN OPENING NOTE PATIENT AWAKE IN BED RESTING. A/O X3-4. NO S/S OF PAIN NOTED AT THIS TIME. ON ROOM AIR, NO DISTRESS OR SHORTNESS OF BREATH NOTED. IV ACCESS SKYE #20G INTACT, PATENT AND FLUSHING WELL. PATIENT WITH EXTERNAL DIRECTOR OF CASEWORK SERVICES WITH CURRENT READING OF SR AND HR OF 64, NO CARDIAC DISTRESS NOTED. FALL AND SAFETY MEASURES IN PLACE, BED ALARM ON, BED IN LOW AND LOCK POSITION, CALL LIGHT AND TABLE WITHIN EASY REACH, SIDE RAILS UP X2. WILL CONTINUE TO MONITOR.
[2022-08-06] MEDS: INSULIN GLARGINE, 100 UNIT/ML CARTRIDGE SQ SCH ×3 (09:31→21:41)
[2022-08-06] MEDS: HEPARIN SODIUM, PORCINE 5000 UNITS/1 ML VIAL SQ SCH ×2 (09:32→21:39)
[2022-08-06] MEDS: ASPIRIN 81 MG TAB.CHEW PO SCH (09:32)
[2022-08-06] MEDS: METOPROLOL TARTRATE 50 MG TABLET PO SCH ×2 (09:33→16:57)
[2022-08-06] MEDS: DOCUSATE SODIUM 100 MG CAPSULE PO SCH ×2 (09:33→16:57)
[2022-08-06] MEDS: LINAGLIPTIN 5 MG TABLET PO SCH (09:33)
[2022-08-06] MEDS: SEVELAMER CARBONATE 800 MG TABLET PO SCH ×3 (09:33→16:56)
[2022-08-06] MEDS: GABAPENTIN 100 MG CAPSULE PO SCH ×2 (09:34→21:29)
[2022-08-06] MEDS: AMLODIPINE BESYLATE 10 MG TABLET PO SCH (09:34)
[2022-08-06] MEDS: ISOSORBIDE MONONITRATE (30MG) 30 MG TAB.SR.24H PO SCH (09:34)
[2022-08-06] MEDS: VIT B CMPLX 3/FA/VIT C/BIOTIN 1 TAB TABLET PO SCH (09:35)
[2022-08-06] MEDS: Z GUARD REMEDY 4 OZ OINT TP SCH (09:35)
[2022-08-06 12:00] VITALS: BP 141/70
[2022-08-06 16:00] VITALS: BP 137/78
--- NOTE | 2022-08-06 19:07 | NUR ---
RN CLOSING NOTE PATIENT AWAKE IN BED RESTING. A/O X3-4. NO S/S OF PAIN NOTED AT THIS TIME. ON ROOM AIR, NO DISTRESS OR SHORTNESS OF BREATH NOTED. IV ACCESS SKYE #20G INTACT, PATENT AND FLUSHING WELL. PATIENT WITH EXTERNAL TABLE TENDER SLUDGE WITH CURRENT READING OF SR AND HR OF 66, NO CARDIAC DISTRESS NOTED. WOUND CARE IMPLEMENTED. ALL SCHEDULE MEDICATIONS ADMINISTERED. PATIENT WAS TURNED AND REPOSITIONED PER PROTOCOL. FALL AND SAFETY MEASURES IN PLACE, BED ALARM ON, BED IN LOW AND LOCK POSITION, CALL LIGHT AND TABLE WITHIN EASY REACH, SIDE RAILS UP X2. WILL ENDORSE TO FLASH OVEN OPERATOR.
--- NOTE | 2022-08-06 19:30 | NUR ---
HOME CARE ADMINISTRATOR OPENING NOTES RECEIVED PATIENT LYING IN BED ASLEEP, EASY TO AROUSE. A/O X3. BREATHING EVEN AND NON-LABORED ON ROOM AIR. DENIES PAIN AT THIS TIME. NOT IN APPARENT DISTRESS. ON TELE MONITOR READING SINUS RHYTHM AT 68 BPM. HAS LEFT UPPER ARM IV ACCESS #20G AND SALINE LOCKED. NO S/S OF INFILTRATION NOTED. SAFETY PRECAUTIONS IN PLACE: BED LOCKED AND IN LOWEST POSITION, SIDE RAILS UP X2 AND PADDED FOR SEIZURE PROTOCOL, CALL LIGHT WITHIN EASY REACH. WILL CONTINUE POC.
[2022-08-06 20:00] VITALS: BP 147/61
[2022-08-06] MEDS: ESCITALOPRAM OXALATE (10 MG) 10 MG TABLET PO SCH (21:29)
[2022-08-06] MEDS: *INSULIN REGULAR(HUMULIN R)HUM 100 UNIT/ML VIAL SQ PRN (21:43)
[2022-08-07] VITALS: BP 147/64
[2022-08-07 04:00] VITALS: BP 133/58
[2022-08-07] MEDS: INSULIN REGULAR, HUMAN 100 UNIT/ML 3 ML VIAL SQ PRN (06:30)
[2022-08-07] MEDS: BLOOD SUGAR DIAGNOSTIC 1 EACH STRIP IN SCH (06:30)
--- NOTE | 2022-08-07 06:37 | NUR ---
TRACK BROOM OPERATOR CLOSING NOTES PATIENT LYING IN BED AWAKE. A/O X3. NO SOB OR NOTED, TOLERATING ROOM AIR WELL. NO C/O PAIN OR DISCOMFORT. NO ACUTE DISTRESS NOTED. AFEBRILE. ON TELE MONITOR READING SINUS BRADYCARDIA WITH 1ST DEGREE AV BLOCK AT 59 BPM. HAS LEFT UPPER ARM IV ACCESS #20G AND SALINE LOCKED. INTACT, PATENT AND FLUSHING. ALL DUE MEDS GIVEN AND NEEDS ATTENDED. SAFETY PRECAUTIONS MAINTAINED. WILL ENDORSE TO NEXT SHIFT FOR KODY.
--- NOTE | 2022-08-07 07:13 | NUR ---
RN OPENING NOTE PATIENT AWAKE IN BED RESTING. A/O X3-4. NO S/S OF PAIN NOTED AT THIS TIME. ON ROOM AIR, NO DISTRESS OR SHORTNESS OF BREATH NOTED. IV ACCESS SKYE #20G INTACT, PATENT AND FLUSHING WELL. PATIENT WITH EXTERNAL FINNISH RUBBER WITH CURRENT READING OF SR AND HR OF 60, NO CARDIAC DISTRESS NOTED. FALL AND SAFETY MEASURES IN PLACE, BED ALARM ON, BED IN LOW AND LOCK POSITION, CALL LIGHT AND TABLE WITHIN EASY REACH, SIDE RAILS UP X2. WILL CONTINUE TO MONITOR.
[2022-08-07 08:53] VITALS: BP 162/60
[2022-08-07] MEDS: DOCUSATE SODIUM 100 MG CAPSULE PO SCH (08:56)
[2022-08-07] MEDS: METOPROLOL TARTRATE 50 MG TABLET PO SCH (08:56)
[2022-08-07] MEDS: VIT B CMPLX 3/FA/VIT C/BIOTIN 1 TAB TABLET PO SCH (08:56)
[2022-08-07] MEDS: LINAGLIPTIN 5 MG TABLET PO SCH (08:57)
[2022-08-07] MEDS: ASPIRIN 81 MG TAB.CHEW PO SCH (08:57)
[2022-08-07] MEDS: SEVELAMER CARBONATE 800 MG TABLET PO SCH (08:57)
[2022-08-07] MEDS: GABAPENTIN 100 MG CAPSULE PO SCH (08:57)
[2022-08-07] MEDS: ISOSORBIDE MONONITRATE (30MG) 30 MG TAB.SR.24H PO SCH (08:57)
[2022-08-07] MEDS: HEPARIN SODIUM, PORCINE 5000 UNITS/1 ML VIAL SQ SCH (08:58)
[2022-08-07 08:59] VITALS: BP 128/76
[2022-08-07] MEDS: AMLODIPINE BESYLATE 10 MG TABLET PO SCH (08:59)
[2022-08-07] MEDS: Z GUARD REMEDY 4 OZ OINT TP SCH (09:00)
--- NOTE | 2022-08-07 09:15 | NUR ---
VICE PRESIDENT [employer] NOTE PATIENT DISCHARGE IN STABLE MEDICAL CONDITION. A/O X 3-4. V/S TAKEN, STABLE AND RECORDED. NO IV ACCESS. SKIN ASSESSMENT DONE AND PICTURES TAKEN. NAME ARM BAND REMOVED. EXTERNAL EMBOSSING MACHINE OPERATOR HELPER REMOVED AND RETURNED TO TELE DESK. ALL BELONGINGS CHECKED AND SIGNED. HEALTH TEACHING AND DISCHARGE INSTRUCTIONS GIVEN TO PATIENT AND TO NURSE AT [facility] AND VERBALIZED UNDERSTANDING. REPORT GIVEN TO ABIOLA GARCIA AT [facility] [phone]. DISCUSSED MEDICATIONS WITH PATIENT AND NURSE, IN CASE OF EMERGENCY TO CALL 911 OR GO TO THE NEAREST ER. PATIENT LEFT UNIT VIA GURNEY WITH NO SIGNED OF DISTRESS, ACCOMPANIED BY PARAMEDICS/EMT. CHARGE NURSE AWARE OF DISCHARGE.
[2022-08-07] MEDS ORDERED: MEROPENEM 500 MG in IV NS 0.9% 50 ML IV ONE (10:00)
[2022-08-07] MEDS ORDERED: MERO500P IV (10:46)
[2022-08-07] MEDS ORDERED: MEROPENEM 500 MG in IV NS 0.9% 100 ML IV SCH (22:00)
== END 2022-08-07 15:30 | DRG 689 ==
LOC: ER 19:07 → MED 08-02 00:14 → TELE 08-02 23:52 → MED 08-07 12:18
PROVIDERS: ADMIT Internal Medicine; ATTEND Nurse Practitioner Acute Care
PROC: 5A1D70Z Performance of Urinary Filtration, Intermittent, Less than 6 Hours Per Day (ICD-10-PCS; principal; 2022-08-02)
DX: N39.0 Urinary tract infection, site not specified (principal); N18.6 End stage renal disease; I12.0 Hypertensive chronic kidney disease with stage 5 chronic kidney disease or end stage renal disease; R45.851 Suicidal ideations; Z16.12 Extended spectrum beta lactamase (ESBL) resistance; E11.22 Type 2 diabetes mellitus with diabetic chronic kidney disease; E87.5 Hyperkalemia; Z66 Do not resuscitate; E11.65 Type 2 diabetes mellitus with hyperglycemia; M89.8X9 Other specified disorders of bone, unspecified site; Z79.4 Long term (current) use of insulin; Z87.891 Personal history of nicotine dependence; Z99.2 Dependence on renal dialysis; B96.20 Unspecified Escherichia coli [E. coli] as the cause of diseases classified elsewhere; F32.9 Major depressive disorder, single episode, unspecified; Z20.822 Contact with and (suspected) exposure to COVID-19; F03.90 Unspecified dementia, unspecified severity, without behavioral disturbance, psychotic disturbance, mood disturbance, and anxiety
CPT/HCPCS: 36415; 71045-TC; 80048-TC; 80053-TC; 80076-TC; 81001; 82962-TC; 83605-TC; 83735-TC; 84100-TC; 84484-TC; 85025-TC; 86706; 87081-TC; 87086-TC; 87186-TC; 87340; 90935-TC; C9803; G0378; G0480; J0360; J0696; J1644; J1815; J2185; J2270; J7030; J7060

== ENCOUNTER 2023-11-01 01:50 | Inpatient (IN) | payer MEDICARE, OTHER ==
[2023-11-01] VITALS (7 sets, daily range): BP systolic 137–165; BP diastolic 42–53; TEMP 99.2–100.8; O2SAT 95–100
[~2023-11-01] VITALS: Ht 157.5 cm; Wt 83.9 kg
[~2023-11-01 01:50] MED LIST: AMLO-213 PO; ASPI-1169 PO; DOCU-141 PO; ESCI5TAB PO; FOLI0.8T23 PO; GABA-532 PO; HYDR-4075 PO; INSU100I26 SQ; ISOS30TA86 PO; LINA5TAB PO; MERO500P IV; METO50TA16 PO; SENN-261 PO; SEVE800T8 PO
[2023-11-01] MEDS ORDERED: VANCOMYCIN 1 GM in IV D5W 250 ML IV ONE (02:30)
[2023-11-01] MEDS ORDERED: PIPERACILLIN /TAZOBACTAM 3.375 G in IV D5W 50 ML IV ONE (02:30)
[2023-11-01 02:44] LABS: BASOPHILS % (AUTO) 0.2 % (0.0-2.0); EOSINOPHILS # (AUTO) 0.1 K/uL (0.0-0.7); EOSINOPHILS % (AUTO) 1.1 % (0.0-6.0); HEMATOCRIT 35 % (33-45); LYMPHOCYTES # (AUTO) 0.3 K/uL (0.8-4.8); LYMPHOCYTES % (AUTO) 3.1 % (20.0-44.0); MEAN CORPUSCULAR HEMOGLOBIN 32 PG (26.0-33.0); MEAN CORPUSCULAR HGB CONC 32 g/dl (31.0-36.0); MEAN CORPUSCULAR VOLUME 99 fL (82-100); MONOCYTES # (AUTO) 0.4 K/uL (0.1-1.30); MONOCYTES % (AUTO) 4.2 % (2.0-12.0); NEUTROPHILS # (AUTO) 9.6 K/uL (1.8-8.9); NEUTROPHILS % (AUTO) 91.4 % (43.0-81.0); PLATELET COUNT (AUTO) 223 K/uL (150-450); RED BLOOD CELL COUNT(AUTO) 3.47 MIL/uL (4.0-5.2); RED CELL DISTRIBUTION WIDTH 17.1 % (11.5-15.0); WHITE BLOOD COUNT (AUTO) 10.5 K/uL (4.3-11.0)
[2023-11-01] MEDS ORDERED: PIPERACI/TAZO 3.375GM/D5W 50ML PB IV ONE (02:47)
[2023-11-01 02:55] LABS: CALCIUM, SERUM 8.7 mg/dL (8.5-10.1); CARBON DIOXIDE 23 mmol/L (21-32); CHLORIDE 98 mmol/L (98-107); GLUCOSE 126 mg/dL (74-106); INR 0.97 (0.91-1.10); PARTIAL THROMBOPLASTIN TIME 30.5 SEC (24.3-34.3); POTASSIUM 5.5 mmol/L (3.5-5.1); PROTHROMBIN TIME 10.3 SECS (9.2-11.1); SODIUM SERUM 130 mmol/L (136-145); UREA NITROGEN, BLOOD 22 mg/dL (7-18)
[2023-11-01 03:01] LABS: APPEARANCE,URINE TURBID (CLEAR); BILIRUBIN,URINE 1+ (NEGATIVE); BLOOD, URINE 1+ Ery/uL (NEGATIVE); COLOR,URINE DARK YELLOW (YELLOW); KETONES,URINE TRACE mg/dL (NEGATIVE); LEUKOCYTE ESTERASE ,URINE 1+ (NEGATIVE); NITRITE, URINE NEGATIVE (NEGATIVE); PH,URINE 5.5 (5.0-8.0); PROTEIN,URINE 3+ mg/dl (NEGATIVE); UGLUCOSE TRACE mg/dL (NEGATIVE); UROBILINOGEN,URINE 0.2 EU/dL (0.2)
[2023-11-01 03:03] LABS: LACTIC ACID 1.2 mmol/L (0.4-2.0)
[2023-11-01 03:06] LABS: ADD URINE CULTURE YES; BACTERIA,URINE Few /HPF (None Seen); SQUAMOUS EPITHELIAL CELL,UR Rare /HPF (None Seen)
[2023-11-01 03:10] LABS: ALANINE AMINOTRANSFERASE 9 U/L (12-78); ALBUMIN 3.1 g/dL (3.4-5.0); ALKALINE PHOSPHATASE 144 U/L (46-116); ASPARTATE AMINOTRANSFERASE 32 U/L (15-37); BILIRUBIN,DIRECT 0.1 mg/dL (0.0-0.2); BILIRUBIN,TOTAL 0.5 mg/dL (0.2-1.0); TOTAL PROTEIN, SERUM 7.9 g/dL (6.4-8.2)
[2023-11-01] MEDS ORDERED: VANCOMYCIN 1 GM /D5W 250 ML PB IV ONE (03:15)
[2023-11-01] MEDS ORDERED: ENOXAPARIN SODIUM 80 MG/0.8 ML DISP.SYRIN SQ ONE (03:30)
[2023-11-01] MEDS ORDERED: ENOXAPARIN SODIUM 60 MG/0.6 ML DISP.SYRIN SQ ONE (03:42)
[2023-11-01] MEDS ORDERED: ENOXAPARIN SODIUM 30 MG/0.3 ML DISP.SYRIN ONE (03:42)
[2023-11-01] MEDS ORDERED: ACETAMINOPHEN ES 500 MG TABLET ONE (03:51)
[2023-11-01] MEDS ORDERED: ACETAMINOPHEN ES 500 MG TABLET PO ONE (04:00)
[2023-11-01] MEDS ORDERED: MORPHINE SULFATE INJ 2 MG/ML DISP.SYRIN IV PRN (05:00)
[2023-11-01] MEDS ORDERED: hydrALAZINE HCL IV 20 MG VIAL IV PRN (05:00)
[2023-11-01] MEDS ORDERED: DEXTROSE 50%-WATER 50 ML DISP.SYRIN IV PRN (05:00)
[2023-11-01] MEDS ORDERED: ONDANSETRON HCL/PF 4 MG/2 ML VIAL IVP PRN (05:00)
[2023-11-01] MEDS ORDERED: ALBUTEROL FS 2.5 MG/0.5 ML VIAL.NEB NEB PRN (05:00)
[2023-11-01] MEDS ORDERED: MEROPENEM 1 G in IV NS 0.9% 100 ML IV SCH (05:00)
[2023-11-01] MEDS: BLOOD SUGAR DIAGNOSTIC 1 EACH STRIP VI SCH ×4 (07:30→21:08)
[2023-11-01] MEDS: SEVELAMER CARBONATE 800 MG TABLET PO SCH ×3 (08:00→17:21)
[2023-11-01] MEDS ORDERED: ONDA4TAB5 PO (08:12)
[2023-11-01] MEDS ORDERED: METO-357 PO (08:12)
[2023-11-01] MEDS ORDERED: MAGN400O6 PO (08:12)
[2023-11-01] MEDS ORDERED: INSU100I47 SQ (08:12)
[2023-11-01] MEDS ORDERED: ISOS30TA9 PO (08:12)
[2023-11-01] MEDS ORDERED: CYCL30DR EACHEYE (08:12)
[2023-11-01] MEDS ORDERED: BISA10SU11 RC (08:12)
[2023-11-01] MEDS ORDERED: LATA2.5D2 LEFTEYE (08:12)
[2023-11-01] MEDS ORDERED: VIT1TABL46 PO (08:12)
[2023-11-01] MEDS ORDERED: HYDR-4303 PO (08:12)
[2023-11-01] MEDS ORDERED: INSU100I26 SQ (08:12)
[2023-11-01] MEDS ORDERED: CLON1PAT2 TD (08:12)
[2023-11-01] MEDS ORDERED: PANT40TA2 PO (08:12)
[2023-11-01] MEDS ORDERED: NALO4SPR BNOSTRILS (08:12)
[2023-11-01] MEDS ORDERED: HYDR-4209 PO (08:12)
[2023-11-01] MEDS ORDERED: GLUC1KIT SQ (08:12)
[2023-11-01] MEDS ORDERED: ACET-868 PO (08:12)
[2023-11-01] MEDS: AMLODIPINE BESYLATE 10 MG TABLET PO SCH (09:00)
[2023-11-01] MEDS: HEPARIN SODIUM, PORCINE 5000 UNITS/1 ML VIAL SQ SCH ×2 (09:00→20:54)
[2023-11-01] MEDS: DOCUSATE SODIUM 100 MG CAPSULE PO SCH ×2 (09:00→17:00)
[2023-11-01] MEDS: GABAPENTIN 100 MG CAPSULE PO SCH ×2 (09:00→20:26)
[2023-11-01] MEDS: ASPIRIN 81 MG TAB.CHEW PO SCH (09:00)
[2023-11-01] MEDS: MEROPENEM 1 G in IV NS 0.9% 100 ML IV SCH (09:00)
[2023-11-01] MEDS: METOPROLOL TARTRATE 50 MG TABLET PO SCH ×2 (09:00→17:00)
[2023-11-01] MEDS: INSULIN GLARGINE, 100 UNIT/ML CARTRIDGE SQ SCH (09:00)
[2023-11-01] MEDS: ISOSORBIDE MONONITRATE (30MG) 30 MG TAB.SR.24H PO SCH (09:00)
[2023-11-01] MEDS ORDERED: METOPROLOL TARTRATE 50 MG TABLET ONE (11:30)
[2023-11-01] MEDS ORDERED: ASPIRIN EC 81 MG TABLET.DR PO ONE (11:30)
[2023-11-01] MEDS ORDERED: DOCUSATE SODIUM 100 MG CAPSULE PO ONE (11:30)
[2023-11-01] MEDS ORDERED: GABAPENTIN 100 MG CAPSULE ONE (11:30)
[2023-11-01] MEDS ORDERED: AMLODIPINE BESYLATE 10 MG TABLET ONE (11:30)
[2023-11-01] MEDS: INSULIN REGULAR, HUMAN 100 UNIT/ML 3 ML VIAL SQ PRN ×2 (12:10→12:29)
[2023-11-01] MEDS: IPRATROPIUM NEB FS 0.5 MG/2.5 ML AMPUL.NEB NEB SCH ×2 (14:11→20:21)
[2023-11-01] MEDS: ALBUTEROL FS 2.5 MG/0.5 ML VIAL.NEB NEB SCH ×2 (14:11→20:21)
[2023-11-01] MEDS: ACETAMINOPHEN 325 MG TABLET PO PRN (15:12)
[2023-11-01] MEDS: ESCITALOPRAM OXALATE (10 MG) 10 MG TABLET PO SCH (21:04)
[2023-11-02] VITALS (15 sets, daily range): BP systolic 97–150; BP diastolic 43–87; TEMP 98–99.7; O2SAT 93–100
[2023-11-02] MEDS: IPRATROPIUM NEB FS 0.5 MG/2.5 ML AMPUL.NEB NEB SCH ×4 (02:21→19:43)
[2023-11-02] MEDS: ALBUTEROL FS 2.5 MG/0.5 ML VIAL.NEB NEB SCH ×4 (02:21→19:43)
[2023-11-02] MEDS: BLOOD SUGAR DIAGNOSTIC 1 EACH STRIP VI SCH ×4 (06:53→21:44)
[2023-11-02 07:08] LABS: ALANINE AMINOTRANSFERASE 10 U/L (12-78); ALBUMIN 2.9 g/dL (3.4-5.0); ALKALINE PHOSPHATASE 133 U/L (46-116); ASPARTATE AMINOTRANSFERASE 10 U/L (15-37); BILIRUBIN,TOTAL 0.6 mg/dL (0.2-1.0); CALCIUM, SERUM 8.7 mg/dL (8.5-10.1); CARBON DIOXIDE 28 mmol/L (21-32); CHLORIDE 97 mmol/L (98-107); CREATININE 2.7 mg/dL (0.6-1.3); GLUCOSE 74 mg/dL (74-106); MAGNESIUM 1.9 mg/dL (1.8-2.4); PHOSPHORUS 3.8 mg/dL (2.5-4.9); POTASSIUM 3.5 mmol/L (3.5-5.1); SODIUM SERUM 135 mmol/L (136-145); TOTAL PROTEIN, SERUM 7.7 g/dL (6.4-8.2); UREA NITROGEN, BLOOD 18 mg/dL (7-18)
[2023-11-02 07:10] LABS: BASOPHILS % (AUTO) 0.4 % (0.0-2.0); EOSINOPHILS # (AUTO) 0.1 K/uL (0.0-0.7); EOSINOPHILS % (AUTO) 1.2 % (0.0-6.0); HEMATOCRIT 33 % (33-45); HEMOGLOBIN 10.6 g/dL (11.5-14.8); LYMPHOCYTES # (AUTO) 0.5 K/uL (0.8-4.8); LYMPHOCYTES % (AUTO) 6.8 % (20.0-44.0); MEAN CORPUSCULAR HEMOGLOBIN 31 PG (26.0-33.0); MEAN CORPUSCULAR HGB CONC 32 g/dl (31.0-36.0); MEAN CORPUSCULAR VOLUME 99 fL (82-100); MONOCYTES # (AUTO) 0.7 K/uL (0.1-1.30); MONOCYTES % (AUTO) 9.1 % (2.0-12.0); NEUTROPHILS # (AUTO) 6.2 K/uL (1.8-8.9); NEUTROPHILS % (AUTO) 82.5 % (43.0-81.0); PLATELET COUNT (AUTO) 199 K/uL (150-450); RED BLOOD CELL COUNT(AUTO) 3.37 MIL/uL (4.0-5.2); RED CELL DISTRIBUTION WIDTH 16.8 % (11.5-15.0); WHITE BLOOD COUNT (AUTO) 7.5 K/uL (4.3-11.0)
[2023-11-02] MEDS: SEVELAMER CARBONATE 800 MG TABLET PO SCH ×4 (08:00→17:21)
[2023-11-02] MEDS: ACETAMINOPHEN 325 MG TABLET PO PRN ×2 (08:43→15:47)
[2023-11-02] MEDS: METOPROLOL TARTRATE 50 MG TABLET PO SCH ×2 (08:56→17:00)
[2023-11-02] MEDS: DOCUSATE SODIUM 100 MG CAPSULE PO SCH ×2 (08:56→17:00)
[2023-11-02] MEDS: GABAPENTIN 100 MG CAPSULE PO SCH ×2 (08:56→21:38)
[2023-11-02] MEDS: ISOSORBIDE MONONITRATE (30MG) 30 MG TAB.SR.24H PO SCH (08:56)
[2023-11-02] MEDS: ASPIRIN 81 MG TAB.CHEW PO SCH (08:56)
[2023-11-02] MEDS: HEPARIN SODIUM, PORCINE 5000 UNITS/1 ML VIAL SQ SCH ×2 (08:57→21:37)
[2023-11-02] MEDS: AMLODIPINE BESYLATE 10 MG TABLET PO SCH (08:57)
[2023-11-02] MEDS: INSULIN GLARGINE, 100 UNIT/ML CARTRIDGE SQ SCH (09:00)
[2023-11-02] MEDS: MEROPENEM 1 G in IV NS 0.9% 100 ML IV SCH ×2 (09:00→09:21)
[2023-11-02] MEDS: INSULIN REGULAR, HUMAN 100 UNIT/ML 3 ML VIAL SQ PRN (12:11)
[2023-11-02] MEDS: ESCITALOPRAM OXALATE (10 MG) 10 MG TABLET PO SCH (21:38)
[2023-11-02] MEDS: *INSULIN REGULAR(HUMULIN R)HUM 100 UNIT/ML VIAL SQ PRN (21:55)
[2023-11-03] VITALS (16 sets, daily range): BP systolic 125–153; BP diastolic 45–82; TEMP 97.7–100.8; O2SAT 96–100
[2023-11-03] MEDS: ACETAMINOPHEN 325 MG TABLET PO PRN (00:53)
[2023-11-03] MEDS: IPRATROPIUM NEB FS 0.5 MG/2.5 ML AMPUL.NEB NEB SCH ×4 (01:48→19:43)
[2023-11-03] MEDS: ALBUTEROL FS 2.5 MG/0.5 ML VIAL.NEB NEB SCH ×4 (01:48→19:43)
[2023-11-03] MEDS: BLOOD SUGAR DIAGNOSTIC 1 EACH STRIP VI SCH ×4 (06:01→23:51)
[2023-11-03] MEDS: INSULIN REGULAR, HUMAN 100 UNIT/ML 3 ML VIAL SQ PRN ×3 (06:01→17:12)
[2023-11-03] MEDS ORDERED: Z GUARD REMEDY 4 OZ OINT TP PRN (08:30)
[2023-11-03 09:03] LABS: BASOPHILS % (AUTO) 0.8 % (0.0-2.0); EOSINOPHILS # (AUTO) 0.1 K/uL (0.0-0.7); EOSINOPHILS % (AUTO) 1.7 % (0.0-6.0); HEMATOCRIT 33 % (33-45); HEMOGLOBIN 10.5 g/dL (11.5-14.8); LYMPHOCYTES # (AUTO) 0.6 K/uL (0.8-4.8); LYMPHOCYTES % (AUTO) 9.1 % (20.0-44.0); MEAN CORPUSCULAR HEMOGLOBIN 32 PG (26.0-33.0); MEAN CORPUSCULAR HGB CONC 32 g/dl (31.0-36.0); MEAN CORPUSCULAR VOLUME 99 fL (82-100); MONOCYTES # (AUTO) 0.7 K/uL (0.1-1.30); MONOCYTES % (AUTO) 10.8 % (2.0-12.0); NEUTROPHILS # (AUTO) 4.7 K/uL (1.8-8.9); NEUTROPHILS % (AUTO) 77.6 % (43.0-81.0); PLATELET COUNT (AUTO) 190 K/uL (150-450); RED BLOOD CELL COUNT(AUTO) 3.33 MIL/uL (4.0-5.2); RED CELL DISTRIBUTION WIDTH 16.9 % (11.5-15.0); WHITE BLOOD COUNT (AUTO) 6.1 K/uL (4.3-11.0)
[2023-11-03 09:31] LABS: ALANINE AMINOTRANSFERASE < 6 U/L (12-78); ALBUMIN 2.7 g/dL (3.4-5.0); ALKALINE PHOSPHATASE 122 U/L (46-116); ASPARTATE AMINOTRANSFERASE 15 U/L (15-37); BILIRUBIN,TOTAL 0.4 mg/dL (0.2-1.0); CALCIUM, SERUM 8.6 mg/dL (8.5-10.1); CARBON DIOXIDE 26 mmol/L (21-32); CHLORIDE 94 mmol/L (98-107); CREATININE 3.7 mg/dL (0.6-1.3); GLUCOSE 117 mg/dL (74-106); PHOSPHORUS 5.1 mg/dL (2.5-4.9); POTASSIUM 4.3 mmol/L (3.5-5.1); SODIUM SERUM 130 mmol/L (136-145); TOTAL PROTEIN, SERUM 7.4 g/dL (6.4-8.2); UREA NITROGEN, BLOOD 27 mg/dL (7-18)
[2023-11-03] MEDS: HEPARIN SODIUM, PORCINE 5000 UNITS/1 ML VIAL SQ SCH (09:46)
[2023-11-03] MEDS: INSULIN GLARGINE, 100 UNIT/ML CARTRIDGE SQ SCH (09:48)
[2023-11-03] MEDS: ISOSORBIDE MONONITRATE (30MG) 30 MG TAB.SR.24H PO SCH (09:50)
[2023-11-03] MEDS: Z GUARD REMEDY 4 OZ OINT TP SCH (09:50)
[2023-11-03] MEDS: GABAPENTIN 100 MG CAPSULE PO SCH (09:51)
[2023-11-03] MEDS: AMLODIPINE BESYLATE 10 MG TABLET PO SCH (09:51)
[2023-11-03] MEDS: DOCUSATE SODIUM 100 MG CAPSULE PO SCH ×2 (09:51→17:10)
[2023-11-03] MEDS: ASPIRIN 81 MG TAB.CHEW PO SCH (09:51)
[2023-11-03] MEDS: METOPROLOL TARTRATE 50 MG TABLET PO SCH ×2 (09:51→17:00)
[2023-11-03] MEDS: MEROPENEM 1 G in IV NS 0.9% 100 ML IV SCH (09:52)
[2023-11-03] MEDS: SEVELAMER CARBONATE 800 MG TABLET PO SCH ×3 (09:58→17:21)
[2023-11-03] MEDS: PROSOURCE / PROSTAT (PYXIS) 30 ML UDC PO SCH ×2 (12:02→17:10)
[2023-11-03] MEDS: *INSULIN REGULAR(HUMULIN R)HUM 100 UNIT/ML VIAL SQ PRN (21:47)
[2023-11-03] MEDS: VANCOMYCIN 500 MG in IV D5W 100 ML IV PRN (23:52)
[2023-11-04] VITALS (12 sets, daily range): BP systolic 124–134; BP diastolic 51–60; TEMP 97.9–98.6; O2SAT 93–100
[2023-11-04] MEDS: ACETAMINOPHEN 325 MG TABLET PO PRN ×2 (00:01→17:02)
[2023-11-04] MEDS: HEPARIN SODIUM, PORCINE 5000 UNITS/1 ML VIAL SQ SCH ×3 (00:08→21:00)
[2023-11-04] MEDS: ALBUTEROL FS 2.5 MG/0.5 ML VIAL.NEB NEB SCH ×4 (01:57→19:22)
[2023-11-04] MEDS: IPRATROPIUM NEB FS 0.5 MG/2.5 ML AMPUL.NEB NEB SCH ×4 (01:57→19:22)
[2023-11-04] MEDS: BLOOD SUGAR DIAGNOSTIC 1 EACH STRIP VI SCH ×4 (07:01→22:00)
[2023-11-04] MEDS: INSULIN REGULAR, HUMAN 100 UNIT/ML 3 ML VIAL SQ PRN ×2 (07:02→11:25)
[2023-11-04] MEDS: SEVELAMER CARBONATE 800 MG TABLET PO SCH ×4 (08:00→18:00)
[2023-11-04 08:17] LABS: CALCIUM, SERUM 8.3 mg/dL (8.5-10.1); CARBON DIOXIDE 25 mmol/L (21-32); CHLORIDE 94 mmol/L (98-107); CREATININE 2.6 mg/dL (0.6-1.3); GLUCOSE 104 mg/dL (74-106); POTASSIUM 3.6 mmol/L (3.5-5.1); SODIUM SERUM 128 mmol/L (136-145); UREA NITROGEN, BLOOD 19 mg/dL (7-18)
[2023-11-04] MEDS: MEROPENEM 1 G in IV NS 0.9% 100 ML IV SCH (08:24)
[2023-11-04] MEDS: GABAPENTIN 100 MG CAPSULE PO SCH ×3 (08:24→21:46)
[2023-11-04] MEDS: PROSOURCE / PROSTAT (PYXIS) 30 ML UDC PO SCH ×3 (08:24→17:00)
[2023-11-04] MEDS: ASPIRIN 81 MG TAB.CHEW PO SCH (08:24)
[2023-11-04] MEDS: DOCUSATE SODIUM 100 MG CAPSULE PO SCH ×2 (08:25→17:00)
[2023-11-04] MEDS: ISOSORBIDE MONONITRATE (30MG) 30 MG TAB.SR.24H PO SCH (08:29)
[2023-11-04] MEDS: INSULIN GLARGINE, 100 UNIT/ML CARTRIDGE SQ SCH (09:00)
[2023-11-04] MEDS: AMLODIPINE BESYLATE 10 MG TABLET PO SCH (09:00)
[2023-11-04] MEDS: METOPROLOL TARTRATE 50 MG TABLET PO SCH ×2 (09:00→17:00)
[2023-11-04] MEDS: Z GUARD REMEDY 4 OZ OINT TP SCH (09:14)
[2023-11-04] MEDS: ESCITALOPRAM OXALATE (10 MG) 10 MG TABLET PO SCH ×2 (21:46)
[2023-11-05] VITALS (12 sets, daily range): BP systolic 131–150; BP diastolic 53–73; TEMP 98–98.8; O2SAT 93–100
[2023-11-05] MEDS: IPRATROPIUM NEB FS 0.5 MG/2.5 ML AMPUL.NEB NEB SCH ×4 (01:22→20:26)
[2023-11-05] MEDS: ALBUTEROL FS 2.5 MG/0.5 ML VIAL.NEB NEB SCH ×4 (01:22→20:26)
[2023-11-05] MEDS: INSULIN REGULAR, HUMAN 100 UNIT/ML 3 ML VIAL SQ PRN (06:57)
[2023-11-05] MEDS: BLOOD SUGAR DIAGNOSTIC 1 EACH STRIP VI SCH ×4 (06:57→23:02)
[2023-11-05] MEDS: PROSOURCE / PROSTAT (PYXIS) 30 ML UDC PO SCH ×3 (08:00→17:00)
[2023-11-05] MEDS: SEVELAMER CARBONATE 800 MG TABLET PO SCH ×3 (08:00→18:00)
[2023-11-05 08:14] LABS: CALCIUM, SERUM 8.4 mg/dL (8.5-10.1); CARBON DIOXIDE 26 mmol/L (21-32); CHLORIDE 93 mmol/L (98-107); CREATININE 3.5 mg/dL (0.6-1.3); GLUCOSE 118 mg/dL (74-106); POTASSIUM 3.7 mmol/L (3.5-5.1); SODIUM SERUM 130 mmol/L (136-145); UREA NITROGEN, BLOOD 30 mg/dL (7-18)
[2023-11-05] MEDS: METOPROLOL TARTRATE 50 MG TABLET PO SCH ×2 (09:00→17:00)
[2023-11-05] MEDS: AMLODIPINE BESYLATE 10 MG TABLET PO SCH (09:00)
[2023-11-05] MEDS: INSULIN GLARGINE, 100 UNIT/ML CARTRIDGE SQ SCH (09:00)
[2023-11-05] MEDS: MEROPENEM 1 G in IV NS 0.9% 100 ML IV SCH (09:32)
[2023-11-05] MEDS: HEPARIN SODIUM, PORCINE 5000 UNITS/1 ML VIAL SQ SCH ×2 (09:44→21:30)
[2023-11-05] MEDS: Z GUARD REMEDY 4 OZ OINT TP SCH (09:46)
[2023-11-05] MEDS: DOCUSATE SODIUM 100 MG CAPSULE PO SCH ×2 (09:46→17:03)
[2023-11-05] MEDS: GABAPENTIN 100 MG CAPSULE PO SCH ×2 (09:46→21:24)
[2023-11-05] MEDS: ASPIRIN 81 MG TAB.CHEW PO SCH (09:46)
[2023-11-05] MEDS: ISOSORBIDE MONONITRATE (30MG) 30 MG TAB.SR.24H PO SCH (09:48)
[2023-11-05] MEDS: ACETAMINOPHEN 325 MG TABLET PO PRN (17:04)
[2023-11-05] MEDS: VANCOMYCIN 500 MG in IV D5W 100 ML IV PRN (17:58)
[2023-11-05] MEDS: ESCITALOPRAM OXALATE (10 MG) 10 MG TABLET PO SCH (21:25)
[2023-11-05] MEDS: *INSULIN REGULAR(HUMULIN R)HUM 100 UNIT/ML VIAL SQ PRN (23:25)
[2023-11-06] VITALS (9 sets, daily range): BP systolic 142–160; BP diastolic 53–56; TEMP 98.2–99.3; O2SAT 96–100
[2023-11-06] MEDS: IPRATROPIUM NEB FS 0.5 MG/2.5 ML AMPUL.NEB NEB SCH ×3 (02:11→13:07)
[2023-11-06] MEDS: ALBUTEROL FS 2.5 MG/0.5 ML VIAL.NEB NEB SCH ×3 (02:11→13:07)
[2023-11-06] MEDS: BLOOD SUGAR DIAGNOSTIC 1 EACH STRIP VI SCH ×3 (06:42→17:46)
[2023-11-06] MEDS: ACETAMINOPHEN 325 MG TABLET PO PRN ×2 (06:42→16:15)
[2023-11-06] MEDS: INSULIN REGULAR, HUMAN 100 UNIT/ML 3 ML VIAL SQ PRN ×2 (06:43→17:46)
[2023-11-06 07:03] LABS: CALCIUM, SERUM 8.5 mg/dL (8.5-10.1); CARBON DIOXIDE 24 mmol/L (21-32); CHLORIDE 100 mmol/L (98-107); CREATININE 2.6 mg/dL (0.6-1.3); GLUCOSE 165 mg/dL (74-106); POTASSIUM 3.9 mmol/L (3.5-5.1); SODIUM SERUM 135 mmol/L (136-145); UREA NITROGEN, BLOOD 14 mg/dL (7-18)
[2023-11-06] MEDS: PROSOURCE / PROSTAT (PYXIS) 30 ML UDC PO SCH ×3 (08:00→16:11)
[2023-11-06] MEDS: DOCUSATE SODIUM 100 MG CAPSULE PO SCH ×2 (08:19→16:11)
[2023-11-06] MEDS: GABAPENTIN 100 MG CAPSULE PO SCH (08:19)
[2023-11-06] MEDS: SEVELAMER CARBONATE 800 MG TABLET PO SCH ×3 (08:19→18:00)
[2023-11-06] MEDS: ASPIRIN 81 MG TAB.CHEW PO SCH (08:19)
[2023-11-06] MEDS: METOPROLOL TARTRATE 50 MG TABLET PO SCH ×2 (08:20→16:11)
[2023-11-06] MEDS: ISOSORBIDE MONONITRATE (30MG) 30 MG TAB.SR.24H PO SCH (08:20)
[2023-11-06] MEDS: AMLODIPINE BESYLATE 10 MG TABLET PO SCH (08:20)
[2023-11-06] MEDS: HEPARIN SODIUM, PORCINE 5000 UNITS/1 ML VIAL SQ SCH (08:21)
[2023-11-06] MEDS: INSULIN GLARGINE, 100 UNIT/ML CARTRIDGE SQ SCH (08:23)
[2023-11-06] MEDS: Z GUARD REMEDY 4 OZ OINT TP SCH (08:54)
[2023-11-06] MEDS: MEROPENEM 1 G in IV NS 0.9% 100 ML IV SCH (08:54)
== END 2023-11-06 18:10 | DRG 871 ==
LOC: ER 01:51 → TRANSITION 08:46 → TELE 12:26 → MED 11-03 12:12
PROC: 5A1D70Z Performance of Urinary Filtration, Intermittent, Less than 6 Hours Per Day (ICD-10-PCS; principal; 2023-11-01)
DX: A41.9 Sepsis, unspecified organism (principal); J18.9 Pneumonia, unspecified organism; N18.6 End stage renal disease; I13.2 Hypertensive heart and chronic kidney disease with heart failure and with stage 5 chronic kidney disease, or end stage renal disease; E87.1 Hypo-osmolality and hyponatremia; I69.354 Hemiplegia and hemiparesis following cerebral infarction affecting left non-dominant side; N39.0 Urinary tract infection, site not specified; F03.93 Unspecified dementia, unspecified severity, with mood disturbance; I50.9 Heart failure, unspecified; D64.9 Anemia, unspecified; E11.22 Type 2 diabetes mellitus with diabetic chronic kidney disease; E87.5 Hyperkalemia; Z79.4 Long term (current) use of insulin; Z79.82 Long term (current) use of aspirin; Z99.3 Dependence on wheelchair; F32.A Depression, unspecified; Z99.2 Dependence on renal dialysis; G62.9 Polyneuropathy, unspecified; M89.8X9 Other specified disorders of bone, unspecified site; E11.40 Type 2 diabetes mellitus with diabetic neuropathy, unspecified; E66.9 Obesity, unspecified; Z68.33 Body mass index [BMI] 33.0-33.9, adult
CPT/HCPCS: 36415; 71045-TC; 80048-TC; 80053-TC; 80076-TC; 80202-TC; 81001; 82962-TC; 83605-TC; 83735-TC; 83880; 84100-TC; 84484-TC; 85025-TC; 85730-TC; 87040-TC; 87086-TC; 90935-TC; 93307-TC; 94799-TC; A4223; G0378; J1644; J1650; J1815; J2185; J2270; J2405; J2543; J3370; J7030; J7060

== ENCOUNTER 2023-12-26 05:13 | Inpatient (IN) | payer MEDICARE, OTHER ==
[~2023-12-26] VITALS: Ht 152.4 cm; Wt 91.6 kg
[~2023-12-26 05:13] MED LIST changes: +ACET-868 PO; +BISA10SU11 RC; +CLON1PAT2 TD; +CYCL30DR EACHEYE; -DOCU-141 PO; -FOLI0.8T23 PO; +GLUC1KIT SQ; +HYDR-4209 PO; +HYDR-4303 PO; +INSU100I47 SQ; -ISOS30TA86 PO; +ISOS30TA9 PO; +LATA2.5D2 LEFTEYE; -LINA5TAB PO; +MAGN400O6 PO; -MERO500P IV; +METO-357 PO; -METO50TA16 PO; +NALO4SPR BNOSTRILS; +ONDA4TAB5 PO; +PANT40TA2 PO; +VIT1TABL46 PO
[2023-12-26 08:02] LABS: BASOPHILS % (AUTO) 0.3 % (0.0-2.0); EOSINOPHILS # (AUTO) 0.1 K/uL (0.0-0.7); EOSINOPHILS % (AUTO) 1.3 % (0.0-6.0); HEMATOCRIT 34 % (33-45); HEMOGLOBIN 10.6 g/dL (11.5-14.8); LYMPHOCYTES # (AUTO) 0.5 K/uL (0.8-4.8); LYMPHOCYTES % (AUTO) 5.8 % (20.0-44.0); MEAN CORPUSCULAR HEMOGLOBIN 32 PG (26.0-33.0); MEAN CORPUSCULAR HGB CONC 31 g/dl (31.0-36.0); MEAN CORPUSCULAR VOLUME 104 fL (82-100); MONOCYTES # (AUTO) 0.5 K/uL (0.1-1.30); MONOCYTES % (AUTO) 5.2 % (2.0-12.0); NEUTROPHILS % (AUTO) 87.4 % (43.0-81.0); PLATELET COUNT (AUTO) 226 K/uL (150-450); RED BLOOD CELL COUNT(AUTO) 3.28 MIL/uL (4.0-5.2); RED CELL DISTRIBUTION WIDTH 18.5 % (11.5-15.0); WHITE BLOOD COUNT (AUTO) 9.2 K/uL (4.3-11.0)
[2023-12-26 08:07] LABS: CALCIUM, SERUM 8.7 mg/dL (8.5-10.1); CARBON DIOXIDE 22 mmol/L (21-32); CHLORIDE 101 mmol/L (98-107); CREATININE 4.1 mg/dL (0.6-1.3); GLUCOSE 233 mg/dL (74-106); POTASSIUM 5.8 mmol/L (3.5-5.1); SODIUM SERUM 133 mmol/L (136-145); UREA NITROGEN, BLOOD 40 mg/dL (7-18)
[2023-12-26 08:14] LABS: INR 0.96 (0.91-1.10); PARTIAL THROMBOPLASTIN TIME 21.9 SEC (24.3-34.3); PROTHROMBIN TIME 10.2 SECS (9.2-11.1)
[2023-12-26 08:19] LABS: ALANINE AMINOTRANSFERASE 7 U/L (12-78); ALBUMIN 3.8 g/dL (3.4-5.0); ALKALINE PHOSPHATASE 158 U/L (46-116); ASPARTATE AMINOTRANSFERASE 11 U/L (15-37); BILIRUBIN,DIRECT 0.2 mg/dL (0.0-0.2); BILIRUBIN,TOTAL 0.6 mg/dL (0.2-1.0); TOTAL PROTEIN, SERUM 7.8 g/dL (6.4-8.2)
[2023-12-26] MEDS ORDERED: ASPIRIN 325 MG TABLET ONE (08:53)
[2023-12-26] MEDS ORDERED: SODIUM BICARBONATE SYR 50 MEQ/50 ML DISP.SYRIN ONE (08:54)
[2023-12-26] MEDS ORDERED: SODIUM POLYSTYRENE SULFONATE 15 G/60 ML BOTTLE ONE (08:54)
[2023-12-26] MEDS: ASPIRIN 325 MG TABLET PO ONE (08:59)
[2023-12-26] MEDS ORDERED: ALBUTEROL FS 2.5 MG/3 ML VIAL.NEB ONE (09:04)
[2023-12-26] MEDS: ALBUTEROL FS 2.5 MG/3 ML VIAL.NEB NEB ONE (09:08)
[2023-12-26 09:09] VITALS: O2SAT 97
[2023-12-26 09:15] VITALS: O2SAT 100
[2023-12-26] MEDS: SODIUM BICARBONATE SYR 50 MEQ/50 ML DISP.SYRIN IV ONE (09:16)
[2023-12-26] MEDS: SODIUM POLYSTYRENE SULFONATE 15 G/60 ML BOTTLE PO ONE (09:17)
[2023-12-26 09:46] LABS: NT-PRO BNP 28275 pg/mL (0-125)
[2023-12-26] MEDS ORDERED: ONDANSETRON HCL/PF 4 MG/2 ML VIAL IVP PRN (11:00)
[2023-12-26] MEDS ORDERED: MAG HYDROX/AL HYDROX/SIMETH 30 ML UDC PO PRN (11:00)
[2023-12-26] MEDS ORDERED: MAGNESIUM HYDROXIDE 30 ML UDC PO PRN (11:00)
[2023-12-26] MEDS ORDERED: DEXTROSE 50%-WATER 50 ML DISP.SYRIN IV PRN (11:00)
[2023-12-26] MEDS ORDERED: TEMAZEPAM 15 MG CAPSULE PO PRN (11:00)
[2023-12-26 12:00] VITALS: BP 120/54; TEMP 97.8; O2SAT 100
[2023-12-26] MEDS: BLOOD SUGAR DIAGNOSTIC 1 EACH STRIP IN SCH (13:11)
[2023-12-26] MEDS: PANTOPRAZOLE 40 MG TABLET.DR PO SCH (13:12)
[2023-12-26] MEDS: INSULIN REGULAR, HUMAN 100 UNIT/ML 3 ML VIAL SQ PRN (13:17)
[2023-12-26 16:00] VITALS: BP 174/70; TEMP 99.2; O2SAT 100
[2023-12-26] MEDS: ACETAMINOPHEN 325 MG TABLET PO PRN (20:25)
[2023-12-26 21:00] VITALS: BP 193/59; TEMP 98.3; O2SAT 99
[2023-12-27] VITALS (12 sets, daily range): BP systolic 158–198; BP diastolic 61–88; TEMP 97.9–99.1; O2SAT 95–99
[2023-12-27 06:59] LABS: BASOPHILS % (AUTO) 0.8 % (0.0-2.0); EOSINOPHILS # (AUTO) 0.3 K/uL (0.0-0.7); EOSINOPHILS % (AUTO) 7.1 % (0.0-6.0); HEMATOCRIT 33 % (33-45); HEMOGLOBIN 10.6 g/dL (11.5-14.8); LYMPHOCYTES # (AUTO) 0.5 K/uL (0.8-4.8); LYMPHOCYTES % (AUTO) 11.5 % (20.0-44.0); MEAN CORPUSCULAR HEMOGLOBIN 32 PG (26.0-33.0); MEAN CORPUSCULAR HGB CONC 32 g/dl (31.0-36.0); MEAN CORPUSCULAR VOLUME 100 fL (82-100); MONOCYTES # (AUTO) 0.3 K/uL (0.1-1.30); MONOCYTES % (AUTO) 7.4 % (2.0-12.0); NEUTROPHILS # (AUTO) 3.3 K/uL (1.8-8.9); NEUTROPHILS % (AUTO) 73.2 % (43.0-81.0); PLATELET COUNT (AUTO) 209 K/uL (150-450); RED BLOOD CELL COUNT(AUTO) 3.27 MIL/uL (4.0-5.2); RED CELL DISTRIBUTION WIDTH 18.5 % (11.5-15.0); WHITE BLOOD COUNT (AUTO) 4.4 K/uL (4.3-11.0)
[2023-12-27 07:21] LABS: CALCIUM, SERUM 8.5 mg/dL (8.5-10.1); CARBON DIOXIDE 31 mmol/L (21-32); CHLORIDE 97 mmol/L (98-107); GLUCOSE 182 mg/dL (74-106); MAGNESIUM 1.9 mg/dL (1.8-2.4); PHOSPHORUS 5.3 mg/dL (2.5-4.9); POTASSIUM 3.8 mmol/L (3.5-5.1); SODIUM SERUM 134 mmol/L (136-145); UREA NITROGEN, BLOOD 26 mg/dL (7-18)
[2023-12-27 09:44] LABS: ABG BASE EXCESS -0.3 mmol/L; ABG PCO2 57.6 mmHg (35.0-45.0); ABG PH 7.292 (7.350-7.450); ABG PO2 94.3 mmHg (75.0-100.0); ABG TOTAL HEMOGLOBIN 12.9 G/dL (12.0-16.0); AaDO2 37.4 mmHg; COHb 2.5 % (0.5-1.5); MetHb 0.3 % (0.0-1.5); O2Hb 94.3 % (94.0-97.0); SITE, ABG Left Brachial; VENT MODE, BG 2LPM NC
[2023-12-27] MEDS: HEPARIN SODIUM, PORCINE 5000 UNITS/1 ML VIAL SQ SCH (10:00)
[2023-12-27] MEDS: IPRATROPIUM NEB FS 0.5 MG/2.5 ML AMPUL.NEB NEB SCH (14:36)
[2023-12-27] MEDS: AMLODIPINE BESYLATE 10 MG TABLET PO SCH (21:13)
[2023-12-28] VITALS (15 sets, daily range): BP systolic 123–171; BP diastolic 55–72; TEMP 97.7–98.7; O2SAT 94–98
[2023-12-28] MEDS: HYDROCODONE/APAP 5/325MG TABLET PO PRN (14:01)
[2023-12-28] MEDS: PROSOURCE / PROSTAT (PYXIS) 30 ML UDC PO SCH (16:30)
[2023-12-29] VITALS (14 sets, daily range): BP systolic 125–182; BP diastolic 58–91; TEMP 97.9–98.5; O2SAT 95–99
[2023-12-29 01:35] LABS: ABG BASE EXCESS -0.1 mmol/L; ABG OXYGEN SATURATION 87.8 % (92.0-98.5); ABG PCO2 49.2 mmHg (35.0-45.0); ABG PH 7.342 (7.350-7.450); ABG PO2 53.5 mmHg (75.0-100.0); ABG TOTAL HEMOGLOBIN 11.6 G/dL (12.0-16.0); AaDO2 88.1 mmHg; MetHb 0.3 % (0.0-1.5); O2Hb 85.8 % (94.0-97.0); SITE, ABG Right Radial; VENT MODE, BG 2LPM NC
[2023-12-29] MEDS ORDERED: BISACODYL SUPP (10 MG) 10 MG/SUPP.RECT SUPP.RECT RC PRN (11:30)
[2023-12-29] MEDS ORDERED: MAGNESIUM HYDROXIDE 30 ML UDC PO PRN (11:30)
[2023-12-29] MEDS ORDERED: NALOXONE HCL 0.4 MG/ML AMPUL IV PRN ×2 (11:30)
[2023-12-29] MEDS ORDERED: HOME MED MISCELLANEOUS XX SCH (11:30)
[2023-12-29] MEDS: ISOSORBIDE DINITRATE (20MG) 20 MG TABLET PO SCH (12:09)
[2023-12-29] MEDS: SEVELAMER CARBONATE 800 MG POWD.PACK PO SCH (12:09)
[2023-12-29] MEDS: METOPROLOL SUCCINATE 50 MG TAB.SR.24H PO SCH (12:26)
[2023-12-29] MEDS: ACETAMINOPHEN 325 MG TABLET PO PRN (12:41)
[2023-12-29] MEDS: SENNOSIDES 8.6 MG TABLET PO SCH (17:28)
[2023-12-29] MEDS: GABAPENTIN 100 MG CAPSULE PO SCH (21:18)
[2023-12-29] MEDS: LATANOPROST EYE DROP 0.005% 2.5 ML BOTTLE LEFTEYE SCH (21:34)
[2023-12-29] MEDS: INSULIN GLARGINE, 100 UNIT/ML CARTRIDGE SQ SCH (22:32)
[2023-12-30] VITALS (11 sets, daily range): BP systolic 135–171; BP diastolic 48–66; TEMP 98–98.1; O2SAT 95–100
[2023-12-30] MEDS: hydrALAZINE HCL 10 MG TABLET PO PRN (04:34)
[2023-12-30] MEDS: HYDROCODONE/APAP 5/325MG TABLET PO PRN (04:44)
[2023-12-30] MEDS: Z GUARD REMEDY 4 OZ OINT TP PRN (05:42)
[2023-12-30] MEDS: ASPIRIN 81 MG TAB.CHEW PO SCH (08:55)
[2023-12-30] MEDS: VIT B CMPLX 3/FA/VIT C/BIOTIN 1 TAB TABLET PO SCH (08:56)
[2023-12-30] MEDS: ESCITALOPRAM OXALATE (10 MG) 10 MG TABLET PO SCH (08:57)
[2023-12-30] MEDS: PANTOPRAZOLE 40 MG TABLET.DR PO SCH (09:01)
[2023-12-30] MEDS: AMLODIPINE BESYLATE 10 MG TABLET PO SCH (09:37)
[2024-01-04] MEDS ORDERED: CLONIDINE HCL 0.2MG/24H PTWK 1 EA PATCH TD SCH (09:00)
== END 2023-12-30 16:52 | DRG 291 ==
LOC: ER 05:15 → TELE1 09:00 → MEDSG1 12-28 12:17 → TELE1 12-28 20:46
PROVIDERS: ADMIT Nurse Practitioner Acute Care; ATTEND Nurse Practitioner Acute Care
PROC: 5A1D70Z Performance of Urinary Filtration, Intermittent, Less than 6 Hours Per Day (ICD-10-PCS; principal; 2023-12-26)
DX: I13.2 Hypertensive heart and chronic kidney disease with heart failure and with stage 5 chronic kidney disease, or end stage renal disease (principal); I50.33 Acute on chronic diastolic (congestive) heart failure; N18.6 End stage renal disease; J96.21 Acute and chronic respiratory failure with hypoxia; J96.22 Acute and chronic respiratory failure with hypercapnia; E66.2 Morbid (severe) obesity with alveolar hypoventilation; I69.354 Hemiplegia and hemiparesis following cerebral infarction affecting left non-dominant side; D68.62 Lupus anticoagulant syndrome; F01.53 Vascular dementia, unspecified severity, with mood disturbance; D68.69 Other thrombophilia; E87.1 Hypo-osmolality and hyponatremia; D63.8 Anemia in other chronic diseases classified elsewhere; E11.22 Type 2 diabetes mellitus with diabetic chronic kidney disease; E87.5 Hyperkalemia; F32.A Depression, unspecified; Z79.4 Long term (current) use of insulin; Z79.82 Long term (current) use of aspirin; Z74.09 Other reduced mobility; Z99.2 Dependence on renal dialysis
CPT/HCPCS: 36415; 36600; 71045-TC; 80048-TC; 80076-TC; 82803-TC; 82962-TC; 83735-TC; 83880; 84100-TC; 84484-TC; 85025-TC; 85730-TC; 87081-TC; 90935-TC; 94799-TC; G0378; J1644; J1815; J3490; J7030

== ENCOUNTER 2024-03-14 05:43 | Inpatient (IN) | payer MEDICARE, OTHER ==
[~2024-03-14] VITALS: Ht 167.6 cm; Wt 81.6 kg
[2024-03-14 07:50] LABS: CARBON DIOXIDE 25 mmol/L (21-32); CHLORIDE 101 mmol/L (98-107); GLUCOSE 159 mg/dL (74-106); POTASSIUM 3.1 mmol/L (3.5-5.1); SODIUM SERUM 134 mmol/L (136-145)
[2024-03-14 07:51] LABS: CALCIUM, SERUM 8.1 mg/dL (8.5-10.1); CREATININE 3.3 mg/dL (0.6-1.3); UREA NITROGEN, BLOOD 30 mg/dL (7-18)
[2024-03-14 07:55] LABS: HEMATOCRIT 40 % (33-45); HEMOGLOBIN 12.3 g/dL (11.5-14.8); INR 1.03 (0.91-1.10); MEAN CORPUSCULAR VOLUME 104 fL (82-100); PROTHROMBIN TIME 10.9 SECS (9.2-11.1); RED BLOOD CELL COUNT(AUTO) 3.81 MIL/uL (4.0-5.2); WHITE BLOOD COUNT (AUTO) 5.4 K/uL (4.3-11.0)
[2024-03-14 07:56] LABS: LYMPHOCYTES % (AUTO) 15.8 % (20.0-44.0); MEAN CORPUSCULAR HEMOGLOBIN 32 PG (26.0-33.0); MEAN CORPUSCULAR HGB CONC 31 g/dl (31.0-36.0); NEUTROPHILS % (AUTO) 71.2 % (43.0-81.0); PLATELET COUNT (AUTO) 181 K/uL (150-450); RED CELL DISTRIBUTION WIDTH 17.9 % (11.5-15.0)
[2024-03-14 07:57] LABS: ALKALINE PHOSPHATASE 167 U/L (46-116); ASPARTATE AMINOTRANSFERASE 8 U/L (15-37); BILIRUBIN,DIRECT 0.2 mg/dL (0.0-0.2); BILIRUBIN,TOTAL 0.5 mg/dL (0.2-1.0)
[2024-03-14 07:58] LABS: TOTAL PROTEIN, SERUM 7.4 g/dL (6.4-8.2)
[2024-03-14 07:59] LABS: ALBUMIN 3.3 g/dL (3.4-5.0)
[2024-03-14] MEDS ORDERED: hydrALAZINE HCL IV 20 MG VIAL ONE ×2 (08:44→11:04)
[2024-03-14] MEDS: hydrALAZINE HCL IV 20 MG VIAL IV ONE ×2 (08:48→11:00)
[2024-03-14 08:56] LABS: ALANINE AMINOTRANSFERASE 6 U/L (12-78)
[2024-03-14] MEDS ORDERED: MAGNESIUM HYDROXIDE 30 ML UDC PO PRN (10:30)
[2024-03-14] MEDS ORDERED: DEXTROSE 50%-WATER 50 ML DISP.SYRIN IV PRN (10:30)
[2024-03-14] MEDS ORDERED: ONDANSETRON HCL/PF 4 MG/2 ML VIAL IVP PRN (10:30)
[2024-03-14] MEDS ORDERED: ACETAMINOPHEN 325 MG TABLET PO PRN (10:30)
[2024-03-14] MEDS ORDERED: MAG HYDROX/AL HYDROX/SIMETH 30 ML UDC PO PRN (10:30)
[2024-03-14] MEDS ORDERED: FOLI0.8T23 PO (10:58)
[2024-03-14] MEDS ORDERED: ZINC57OI4 TP (10:58)
[2024-03-14] MEDS ORDERED: AMIN30LI2 PO (10:58)
[2024-03-14] MEDS ORDERED: INSU100I30 SQ (10:58)
[2024-03-14] MEDS ORDERED: PANTOPRAZOLE 40 MG TABLET.DR PO ONE (11:06)
[2024-03-14] MEDS: PANTOPRAZOLE 40 MG TABLET.DR PO SCH (11:23)
[2024-03-14] MEDS: POTASSIUM CHLORIDE 20 MEQ TAB.PRT.SR PO ONE (12:44)
[2024-03-14] MEDS: BLOOD SUGAR DIAGNOSTIC 1 EACH STRIP IN SCH (12:54)
[2024-03-14 16:01] VITALS: BP 191/71; TEMP 98.4; O2SAT 100
[2024-03-14] MEDS: INSULIN REGULAR, HUMAN 100 UNIT/ML 3 ML VIAL SQ PRN (17:12)
[2024-03-14 17:15] VITALS: BP 192/60; O2SAT 100
[2024-03-14] MEDS: hydrALAZINE HCL IV 20 MG VIAL IV PRN (18:47)
[2024-03-14 20:00] VITALS: BP 156/49; TEMP 98.6; O2SAT 99
[2024-03-15 02:23] VITALS: O2SAT 98
[2024-03-15 06:40] LABS: BASOPHILS % (AUTO) 0.6 % (0.0-2.0); EOSINOPHILS # (AUTO) 0.3 K/uL (0.0-0.7); EOSINOPHILS % (AUTO) 5.2 % (0.0-6.0); HEMATOCRIT 39 % (33-45); HEMOGLOBIN 12.5 g/dL (11.5-14.8); LYMPHOCYTES # (AUTO) 0.7 K/uL (0.8-4.8); LYMPHOCYTES % (AUTO) 12.5 % (20.0-44.0); MEAN CORPUSCULAR HEMOGLOBIN 32 PG (26.0-33.0); MEAN CORPUSCULAR HGB CONC 32 g/dl (31.0-36.0); MEAN CORPUSCULAR VOLUME 102 fL (82-100); MONOCYTES # (AUTO) 0.5 K/uL (0.1-1.30); MONOCYTES % (AUTO) 9.3 % (2.0-12.0); NEUTROPHILS # (AUTO) 3.9 K/uL (1.8-8.9); NEUTROPHILS % (AUTO) 72.4 % (43.0-81.0); PLATELET COUNT (AUTO) 192 K/uL (150-450); RED BLOOD CELL COUNT(AUTO) 3.87 MIL/uL (4.0-5.2); RED CELL DISTRIBUTION WIDTH 17.9 % (11.5-15.0); WHITE BLOOD COUNT (AUTO) 5.4 K/uL (4.3-11.0)
[2024-03-15] MEDS: Z GUARD REMEDY 4 OZ OINT TP PRN (06:47)
[2024-03-15 07:15] LABS: CARBON DIOXIDE 25 mmol/L (21-32); CHLORIDE 97 mmol/L (98-107); CREATININE 2.9 mg/dL (0.6-1.3); GLUCOSE 176 mg/dL (74-106); POTASSIUM 3.6 mmol/L (3.5-5.1); SODIUM SERUM 130 mmol/L (136-145); UREA NITROGEN, BLOOD 20 mg/dL (7-18)
[2024-03-15 08:22] VITALS: BP 170/55; TEMP 98.9; O2SAT 96
[2024-03-15] MEDS: ASPIRIN 81 MG TAB.CHEW PO SCH (08:23)
[2024-03-15] MEDS: PANTOPRAZOLE 40 MG TABLET.DR PO SCH (08:23)
[2024-03-15] MEDS: GABAPENTIN 100 MG CAPSULE PO SCH (08:23)
[2024-03-15] MEDS: METOPROLOL SUCCINATE 50 MG TAB.SR.24H PO SCH (08:24)
[2024-03-15] MEDS: AMLODIPINE BESYLATE 10 MG TABLET PO SCH (08:24)
[2024-03-15] MEDS ORDERED: hydrALAZINE HCL 10 MG TABLET PO PRN (08:30)
[2024-03-15] MEDS ORDERED: HYDROCODONE/APAP 5/325MG TABLET PO PRN (09:00)
[2024-03-15] MEDS ORDERED: MAGNESIUM HYDROXIDE 30 ML UDC PO PRN (09:00)
[2024-03-15] MEDS ORDERED: BISACODYL SUPP (10 MG) 10 MG/SUPP.RECT SUPP.RECT RC PRN (09:00)
[2024-03-15] MEDS ORDERED: Medication Not On Formulary EA (Cyclosporine (Restasis) 1 DROP) EACHEYE SCH (09:00)
[2024-03-15 09:08] VITALS: O2SAT 96
[2024-03-15] MEDS: ISOSORBIDE DINITRATE (10MG) 10 MG TABLET PO SCH (09:08)
[2024-03-15] MEDS: SENNOSIDES 8.6 MG TABLET PO SCH (09:08)
[2024-03-15 11:09] LABS: HEPATITIS B CORE AB, TOTAL Negative (Negative); HEPATITIS B SURFACE AB Reactive (.)
[2024-03-15 11:16] LABS: CHOLESTEROL 146 mg/dL (<200); HDL CHOLESTEROL 57 mg/dL (40-60); LDL 73 mg/dL (0-99); TRIGLYCERIDES 77 mg/dL (30-150)
[2024-03-15 12:00] VITALS: BP 140/59; TEMP 98.1; O2SAT 96
[2024-03-15] MEDS: SEVELAMER CARBONATE 800 MG TABLET PO SCH (12:18)
[2024-03-15 16:28] VITALS: BP 138/44; TEMP 97.7; O2SAT 98
[2024-03-15] MEDS: LATANOPROST EYE DROP 0.005% 2.5 ML BOTTLE LEFTEYE SCH (17:01)
[2024-03-15 20:00] VITALS: BP 147/49; TEMP 98.3; O2SAT 99
[2024-03-15] MEDS: ESCITALOPRAM OXALATE (10 MG) 10 MG TABLET PO SCH (22:44)
[2024-03-15] MEDS: INSULIN GLARGINE, 100 UNIT/ML CARTRIDGE SQ SCH (23:22)
[2024-03-16] VITALS: BP 151/50; TEMP 98.4; O2SAT 100
[2024-03-16 04:00] VITALS: BP 148/51; TEMP 98.3; O2SAT 100
[2024-03-16] MEDS: ACETAMINOPHEN 325 MG TABLET PO PRN (06:07)
[2024-03-16 07:03] LABS: CALCIUM, SERUM 8.7 mg/dL (8.5-10.1); CARBON DIOXIDE 22 mmol/L (21-32); CHLORIDE 97 mmol/L (98-107); CREATININE 3.7 mg/dL (0.6-1.3); GLUCOSE 150 mg/dL (74-106); POTASSIUM 3.9 mmol/L (3.5-5.1); SODIUM SERUM 129 mmol/L (136-145); UREA NITROGEN, BLOOD 31 mg/dL (7-18)
[2024-03-16 07:30] VITALS: BP 142/50; TEMP 98.6; O2SAT 98
[2024-03-16 09:04] VITALS: O2SAT 95
[2024-03-16] MEDS: VIT B CMPLX 3/FA/VIT C/BIOTIN 1 TAB TABLET PO SCH (11:20)
[2024-03-16] MEDS: PROSOURCE / PROSTAT (PYXIS) 30 ML UDC PO SCH (11:22)
[2024-03-16 15:30] VITALS: BP 166/46; TEMP 98.4; O2SAT 100
[2024-03-16 16:01] VITALS: BP 166/46
[2024-03-17] MEDS ORDERED: CLONIDINE HCL 0.2MG/24H PTWK 1 EA PATCH TD SCH (09:00)
== END 2024-03-16 17:06 | DRG 280 ==
LOC: ER 05:51 → TELE 12:46 → MED 03-16 08:37
PROVIDERS: ADMIT Nurse Practitioner Acute Care; ATTEND Nurse Practitioner Acute Care
PROC: 5A1D70Z Performance of Urinary Filtration, Intermittent, Less than 6 Hours Per Day (ICD-10-PCS; principal; 2024-03-14)
DX: I16.0 Hypertensive urgency (principal); N18.6 End stage renal disease; I21.A1 Myocardial infarction type 2; E87.1 Hypo-osmolality and hyponatremia; I69.354 Hemiplegia and hemiparesis following cerebral infarction affecting left non-dominant side; D68.69 Other thrombophilia; F01.53 Vascular dementia, unspecified severity, with mood disturbance; I13.2 Hypertensive heart and chronic kidney disease with heart failure and with stage 5 chronic kidney disease, or end stage renal disease; Z99.2 Dependence on renal dialysis; D64.9 Anemia, unspecified; E87.6 Hypokalemia; F32.A Depression, unspecified; G93.89 Other specified disorders of brain; Z79.4 Long term (current) use of insulin; I50.9 Heart failure, unspecified; Z79.82 Long term (current) use of aspirin; I25.10 Atherosclerotic heart disease of native coronary artery without angina pectoris; E11.22 Type 2 diabetes mellitus with diabetic chronic kidney disease; Z74.09 Other reduced mobility; R00.1 Bradycardia, unspecified
CPT/HCPCS: 36415; 70450-TC; 71045-TC; 80048-TC; 80061-TC; 80076-TC; 82962-TC; 83605-TC; 83735-TC; 84100-TC; 84484-TC; 85025-TC; 85730-TC; 86704; 86706; 87040-TC; 87340; 90935-TC; 94760-TC; 94799-TC; G0378; J0360; J1815; J7030

== ENCOUNTER 2024-03-28 06:06 | Inpatient (IN) | payer MEDICARE, OTHER ==
[~2024-03-28] VITALS: Ht 160 cm; Wt 90.7 kg
[~2024-03-28 06:06] MED LIST changes: +AMIN30LI2 PO; +FOLI0.8T23 PO; -HYDR-4209 PO; -INSU100I26 SQ; +INSU100I30 SQ; -VIT1TABL46 PO; +ZINC57OI4 TP
[2024-03-28] MEDS ORDERED: CALCIUM CHLORIDE 1,000 MG/10 ML DISP.SYRIN ONE (06:42)
[2024-03-28] MEDS ORDERED: SODIUM BICARBONATE SYR 50 MEQ/50 ML DISP.SYRIN ONE (06:42)
[2024-03-28] MEDS: CALCIUM CHLORIDE 1,000 MG/10 ML DISP.SYRIN IV ONE (06:44)
[2024-03-28] MEDS: SODIUM BICARBONATE SYR 50 MEQ/50 ML DISP.SYRIN IV ONE (06:44)
[2024-03-28 06:50] LABS: BASOPHILS % (AUTO) 0.5 % (0.0-2.0); EOSINOPHILS # (AUTO) 0.1 K/uL (0.0-0.7); EOSINOPHILS % (AUTO) 3.1 % (0.0-6.0); HEMATOCRIT 37 % (33-45); HEMOGLOBIN 11.3 g/dL (11.5-14.8); LYMPHOCYTES # (AUTO) 0.6 K/uL (0.8-4.8); LYMPHOCYTES % (AUTO) 15.1 % (20.0-44.0); MEAN CORPUSCULAR HEMOGLOBIN 32 PG (26.0-33.0); MEAN CORPUSCULAR HGB CONC 31 g/dl (31.0-36.0); MEAN CORPUSCULAR VOLUME 105 fL (82-100); MONOCYTES # (AUTO) 0.3 K/uL (0.1-1.30); MONOCYTES % (AUTO) 7.8 % (2.0-12.0); NEUTROPHILS # (AUTO) 3.1 K/uL (1.8-8.9); NEUTROPHILS % (AUTO) 73.5 % (43.0-81.0); PLATELET COUNT (AUTO) 146 K/uL (150-450); RED BLOOD CELL COUNT(AUTO) 3.51 MIL/uL (4.0-5.2); WHITE BLOOD COUNT (AUTO) 4.2 K/uL (4.3-11.0)
[2024-03-28 07:01] LABS: CALCIUM, SERUM 8.3 mg/dL (8.5-10.1); CARBON DIOXIDE 26 mmol/L (21-32); CHLORIDE 98 mmol/L (98-107); CREATININE 4.7 mg/dL (0.6-1.3); GLUCOSE 222 mg/dL (74-106); POTASSIUM 4.3 mmol/L (3.5-5.1); SODIUM SERUM 133 mmol/L (136-145); UREA NITROGEN, BLOOD 39 mg/dL (7-18)
[2024-03-28 07:08] LABS: ALANINE AMINOTRANSFERASE 13 U/L (12-78); ALBUMIN 3.5 g/dL (3.4-5.0); ALKALINE PHOSPHATASE 178 U/L (46-116); ASPARTATE AMINOTRANSFERASE < 5 U/L (15-37); BILIRUBIN,DIRECT 0.2 mg/dL (0.0-0.2); BILIRUBIN,TOTAL 0.4 mg/dL (0.2-1.0); TOTAL PROTEIN, SERUM 7.5 g/dL (6.4-8.2)
[2024-03-28] MEDS ORDERED: ONDANSETRON HCL/PF 4 MG/2 ML VIAL IVP PRN (09:30)
[2024-03-28] MEDS ORDERED: ACETAMINOPHEN 325 MG TABLET PO PRN (09:30)
[2024-03-28] MEDS ORDERED: DEXTROSE 50%-WATER 50 ML DISP.SYRIN IV PRN (09:30)
[2024-03-28] MEDS ORDERED: MORPHINE SULFATE INJ 2 MG/ML DISP.SYRIN IV PRN (09:30)
[2024-03-28] MEDS: NITROGLYCERIN 30 GM TUBE TP SCH (10:00)
[2024-03-28 11:44] VITALS: O2SAT 93
[2024-03-28 12:00] VITALS: BP 131/39; TEMP 93.2; O2SAT 100
[2024-03-28] MEDS: INSULIN REGULAR, HUMAN 100 UNIT/ML 3 ML VIAL SQ PRN (12:32)
[2024-03-28] MEDS: BLOOD SUGAR DIAGNOSTIC 1 EACH STRIP VI SCH (12:32)
[2024-03-28] MEDS: hydrALAZINE HCL 50 MG TABLET PO SCH (13:00)
[2024-03-28] MEDS: SEVELAMER CARBONATE 800 MG TABLET PO SCH (13:18)
[2024-03-28 16:00] VITALS: BP 122/38; TEMP 97.9; O2SAT 100
[2024-03-28] MEDS: POLYVINYL ALCOHOL 15 ML BOTTLE EACHEYE SCH (17:04)
[2024-03-28] MEDS: LATANOPROST EYE DROP 0.005% 2.5 ML BOTTLE LEFTEYE SCH (17:05)
[2024-03-28 20:00] VITALS: BP 122/39; TEMP 97.8; O2SAT 98
[2024-03-28 20:50] VITALS: BP 132/60; TEMP 97.9; O2SAT 98
[2024-03-28] MEDS: GABAPENTIN 100 MG CAPSULE PO SCH (21:33)
[2024-03-28] MEDS: ESCITALOPRAM OXALATE (10 MG) 10 MG TABLET PO SCH (21:33)
[2024-03-28] MEDS: INSULIN GLARGINE, 100 UNIT/ML CARTRIDGE SQ SCH (21:37)
[2024-03-28] MEDS: *INSULIN REGULAR(HUMULIN R)HUM 100 UNIT/ML VIAL SQ PRN (21:38)
[2024-03-29] VITALS (8 sets, daily range): BP systolic 91–142; BP diastolic 35–56; TEMP 97.2–98; O2SAT 94–100
[2024-03-29] MEDS: ASPIRIN 81 MG TAB.CHEW PO SCH (08:34)
[2024-03-29] MEDS: VIT B CMPLX 3/FA/VIT C/BIOTIN 1 TAB TABLET PO SCH (08:34)
[2024-03-29] MEDS: PANTOPRAZOLE 40 MG TABLET.DR PO SCH (08:34)
[2024-03-29] MEDS: ISOSORBIDE DINITRATE (10MG) 10 MG TABLET PO SCH (09:00)
[2024-03-29] MEDS: AMLODIPINE BESYLATE 10 MG TABLET PO SCH (09:00)
[2024-03-29 15:48] LABS: BASOPHILS % (AUTO) 0.8 % (0.0-2.0); EOSINOPHILS # (AUTO) 0.2 K/uL (0.0-0.7); EOSINOPHILS % (AUTO) 3.4 % (0.0-6.0); HEMATOCRIT 34 % (33-45); HEMOGLOBIN 10.8 g/dL (11.5-14.8); LYMPHOCYTES # (AUTO) 0.6 K/uL (0.8-4.8); LYMPHOCYTES % (AUTO) 12.4 % (20.0-44.0); MEAN CORPUSCULAR HEMOGLOBIN 33 PG (26.0-33.0); MEAN CORPUSCULAR HGB CONC 32 g/dl (31.0-36.0); MEAN CORPUSCULAR VOLUME 104 fL (82-100); MONOCYTES # (AUTO) 0.2 K/uL (0.1-1.30); MONOCYTES % (AUTO) 4.8 % (2.0-12.0); NEUTROPHILS # (AUTO) 3.9 K/uL (1.8-8.9); NEUTROPHILS % (AUTO) 78.6 % (43.0-81.0); PLATELET COUNT (AUTO) 144 K/uL (150-450); RED CELL DISTRIBUTION WIDTH 17.7 % (11.5-15.0)
[2024-03-29 16:11] LABS: ALANINE AMINOTRANSFERASE 14 U/L (12-78); ALBUMIN 3.1 g/dL (3.4-5.0); ALKALINE PHOSPHATASE 160 U/L (46-116); ASPARTATE AMINOTRANSFERASE 10 U/L (15-37); BILIRUBIN,TOTAL 0.3 mg/dL (0.2-1.0); CALCIUM, SERUM 7.5 mg/dL (8.5-10.1); CARBON DIOXIDE 24 mmol/L (21-32); CHLORIDE 98 mmol/L (98-107); CREATININE 4.3 mg/dL (0.6-1.3); GLUCOSE 164 mg/dL (74-106); MAGNESIUM 1.9 mg/dL (1.8-2.4); PHOSPHORUS 4.5 mg/dL (2.5-4.9); POTASSIUM 4.2 mmol/L (3.5-5.1); SODIUM SERUM 132 mmol/L (136-145); TOTAL PROTEIN, SERUM 6.7 g/dL (6.4-8.2); UREA NITROGEN, BLOOD 40 mg/dL (7-18)
[2024-03-30 04:00] VITALS: BP 123/46; TEMP 97.8; O2SAT 100
[2024-03-30 07:00] VITALS: BP 89/47; TEMP 98.6; O2SAT 100
[2024-03-30] MEDS: hydrALAZINE HCL 50 MG TABLET PO SCH (09:00)
[2024-03-30 11:30] VITALS: O2SAT 97
[2024-03-30 12:00] VITALS: BP 115/50; TEMP 98.6; O2SAT 100
[2024-03-30 22:28] LABS: ABG OXYGEN SATURATION 97.6 % (92.0-98.5); ABG PCO2 58.3 mmHg (35.0-45.0); ABG PH 7.241 (7.350-7.450); ABG PO2 111.3 mmHg (75.0-100.0); ABG TOTAL HEMOGLOBIN 8.3 G/dL (12.0-16.0); AaDO2 19.5 mmHg; MetHb 0.3 % (0.0-1.5); O2Hb 96.3 % (94.0-97.0); VENT MODE, BG 2LNC
[2024-03-31] MEDS ORDERED: CLONIDINE HCL 0.2MG/24H PTWK 1 EA PATCH TD SCH (09:00)
== END 2024-03-30 14:30 | DRG 308 ==
LOC: ER 06:19 → TELE 09:21
PROVIDERS: ADMIT Internal Medicine; ATTEND Internal Medicine
PROC: 5A1D70Z Performance of Urinary Filtration, Intermittent, Less than 6 Hours Per Day (ICD-10-PCS; principal; 2024-03-29)
DX: R00.1 Bradycardia, unspecified (principal); N18.6 End stage renal disease; E87.1 Hypo-osmolality and hyponatremia; I13.2 Hypertensive heart and chronic kidney disease with heart failure and with stage 5 chronic kidney disease, or end stage renal disease; D61.818 Other pancytopenia; J96.11 Chronic respiratory failure with hypoxia; J96.12 Chronic respiratory failure with hypercapnia; E66.2 Morbid (severe) obesity with alveolar hypoventilation; I69.354 Hemiplegia and hemiparesis following cerebral infarction affecting left non-dominant side; D50.9 Iron deficiency anemia, unspecified; E11.22 Type 2 diabetes mellitus with diabetic chronic kidney disease; Z99.2 Dependence on renal dialysis; I50.9 Heart failure, unspecified; Z79.82 Long term (current) use of aspirin; Z68.35 Body mass index [BMI] 35.0-35.9, adult; T44.7X5A Adverse effect of beta-adrenoreceptor antagonists, initial encounter; Z79.4 Long term (current) use of insulin; M89.8X9 Other specified disorders of bone, unspecified site; F03.90 Unspecified dementia, unspecified severity, without behavioral disturbance, psychotic disturbance, mood disturbance, and anxiety; Y92.89 Other specified places as the place of occurrence of the external cause
CPT/HCPCS: 36415; 36600; 71045-TC; 80048-TC; 80053-TC; 80076-TC; 82803-TC; 82962-TC; 83735-TC; 83880; 84100-TC; 84484-TC; 85025-TC; 90935-TC; 94762-TC; 94799-TC; G0378; J1815; J3490; J7030

== ENCOUNTER 2024-04-06 15:05 | Inpatient (IN) | payer MEDICARE, OTHER ==
[~2024-04-06] VITALS: Ht 160 cm; Wt 89.8 kg
[~2024-04-06 15:05] MED LIST changes: -METO-357 PO
[2024-04-06 16:06] LABS: BASOPHILS % (AUTO) 0.6 % (0.0-2.0); EOSINOPHILS # (AUTO) 0.2 K/uL (0.0-0.7); EOSINOPHILS % (AUTO) 4.8 % (0.0-6.0); HEMATOCRIT 23 % (33-45); LYMPHOCYTES # (AUTO) 0.7 K/uL (0.8-4.8); LYMPHOCYTES % (AUTO) 16.7 % (20.0-44.0); MEAN CORPUSCULAR HEMOGLOBIN 33 PG (26.0-33.0); MEAN CORPUSCULAR HGB CONC 31 g/dl (31.0-36.0); MEAN CORPUSCULAR VOLUME 110 fL (82-100); MONOCYTES # (AUTO) 0.3 K/uL (0.1-1.30); MONOCYTES % (AUTO) 7.3 % (2.0-12.0); NEUTROPHILS # (AUTO) 3.1 K/uL (1.8-8.9); NEUTROPHILS % (AUTO) 70.6 % (43.0-81.0); PLATELET COUNT (AUTO) 59 K/uL (150-450); RED BLOOD CELL COUNT(AUTO) 2.07 MIL/uL (4.0-5.2); RED CELL DISTRIBUTION WIDTH 17.7 % (11.5-15.0); WHITE BLOOD COUNT (AUTO) 4.4 K/uL (4.3-11.0)
[2024-04-06 16:16] LABS: CALCIUM, SERUM 7.9 mg/dL (8.5-10.1); CARBON DIOXIDE 24 mmol/L (21-32); CHLORIDE 99 mmol/L (98-107); CREATININE 3.8 mg/dL (0.6-1.3); GLUCOSE 181 mg/dL (74-106); POTASSIUM 5.1 mmol/L (3.5-5.1); SODIUM SERUM 132 mmol/L (136-145); UREA NITROGEN, BLOOD 30 mg/dL (7-18)
[2024-04-06 16:17] LABS: ALANINE AMINOTRANSFERASE 9 U/L (12-78); ALBUMIN 2.8 g/dL (3.4-5.0); ALKALINE PHOSPHATASE 132 U/L (46-116); ASPARTATE AMINOTRANSFERASE 14 U/L (15-37); BILIRUBIN,DIRECT 0.1 mg/dL (0.0-0.2); BILIRUBIN,TOTAL 0.3 mg/dL (0.2-1.0); TOTAL PROTEIN, SERUM 6.1 g/dL (6.4-8.2)
[2024-04-06 16:23] LABS: INR 1.03 (0.91-1.10); PARTIAL THROMBOPLASTIN TIME 25.6 SEC (24.3-34.3); PROTHROMBIN TIME 10.9 SECS (9.2-11.1)
[2024-04-06 16:28] LABS: HEMOGLOBIN 6.9 g/dL (11.5-14.8)
[2024-04-06] MEDS ORDERED: Z GUARD REMEDY 4 OZ OINT TP PRN (17:00)
[2024-04-06] MEDS ORDERED: ONDANSETRON HCL/PF 4 MG/2 ML VIAL IVP PRN (17:00)
[2024-04-06] MEDS ORDERED: MAG HYDROX/AL HYDROX/SIMETH 30 ML UDC PO PRN (17:00)
[2024-04-06] MEDS ORDERED: MAGNESIUM HYDROXIDE 30 ML UDC PO PRN (17:00)
[2024-04-06] MEDS ORDERED: DEXTROSE 50%-WATER 50 ML DISP.SYRIN IV PRN (17:30)
[2024-04-06 18:00] LABS: APPEARANCE,URINE CLOUDY (CLEAR); BILIRUBIN,URINE NEGATIVE (NEGATIVE); BLOOD, URINE 2+ Ery/uL (NEGATIVE); COLOR,URINE YELLOW (YELLOW); KETONES,URINE TRACE mg/dL (NEGATIVE); LEUKOCYTE ESTERASE ,URINE 2+ (NEGATIVE); NITRITE, URINE NEGATIVE (NEGATIVE); PH,URINE 5.5 (5.0-8.0); PROTEIN,URINE 3+ mg/dl (NEGATIVE); UGLUCOSE NEGATIVE (NEGATIVE); UROBILINOGEN,URINE 0.2 EU/dL (0.2)
[2024-04-06] MEDS: BLOOD SUGAR DIAGNOSTIC 1 EACH STRIP IN SCH (18:01)
[2024-04-06 18:47] VITALS: BP 127/49; TEMP 98.4; O2SAT 100
[2024-04-06 18:49] LABS: ANISOCYTOSIS 1+; EOSINOPHILS % (MANUAL) 5 % (0-4); LYMPHOCYTES % (MANUAL) 17 % (16-48); MONOCYTES % (MANUAL) 3 % (0-11.0); NEUTROPHILS % (MANUAL) 75 (42-76); PLATELET ESTIMATE DECREASED
[2024-04-06 18:50] LABS: OVALOCYTES 1+; ROULEAUX 1+; TEAR DROP CELLS RARE
[2024-04-06 18:52] LABS: ADD URINE CULTURE YES; BACTERIA,URINE 3+ /HPF (None Seen); RBC,URINE 21-50 /HPF (0-2); SQUAMOUS EPITHELIAL CELL,UR 21-50 /HPF (None Seen); WBC,URINE 21-50 /HPF (0-3)
[2024-04-06 19:46] VITALS: BP 164/71; TEMP 97.9
[2024-04-06 20:00] VITALS: BP 164/71; TEMP 97.9; O2SAT 100
[2024-04-06 20:01] VITALS: BP 164/61; TEMP 97.3
[2024-04-06 20:31] VITALS: BP 182/65; TEMP 97.2
[2024-04-06 21:35] VITALS: BP 165/58; TEMP 97.9
[2024-04-06] MEDS: PANTOPRAZOLE 40 MG VIAL IV SCH (22:34)
[2024-04-07] VITALS: BP 165/58; TEMP 97.9; O2SAT 100
[2024-04-07] MEDS: HYDROCODONE/APAP 5/325MG TABLET PO PRN (02:03)
[2024-04-07 04:00] VITALS: BP 114/67; TEMP 98.4; O2SAT 99
[2024-04-07 06:58] LABS: BASOPHILS % (AUTO) 0.6 % (0.0-2.0); EOSINOPHILS # (AUTO) 0.2 K/uL (0.0-0.7); EOSINOPHILS % (AUTO) 5.8 % (0.0-6.0); HEMATOCRIT 27 % (33-45); HEMOGLOBIN 8.7 g/dL (11.5-14.8); LYMPHOCYTES # (AUTO) 0.5 K/uL (0.8-4.8); LYMPHOCYTES % (AUTO) 13.8 % (20.0-44.0); MEAN CORPUSCULAR HEMOGLOBIN 32 PG (26.0-33.0); MEAN CORPUSCULAR HGB CONC 32 g/dl (31.0-36.0); MEAN CORPUSCULAR VOLUME 101 fL (82-100); MONOCYTES # (AUTO) 0.3 K/uL (0.1-1.30); MONOCYTES % (AUTO) 8.2 % (2.0-12.0); NEUTROPHILS # (AUTO) 2.7 K/uL (1.8-8.9); NEUTROPHILS % (AUTO) 71.6 % (43.0-81.0); PLATELET COUNT (AUTO) 179 K/uL (150-450); RED BLOOD CELL COUNT(AUTO) 2.68 MIL/uL (4.0-5.2); RED CELL DISTRIBUTION WIDTH 19.6 % (11.5-15.0); WHITE BLOOD COUNT (AUTO) 3.7 K/uL (4.3-11.0)
[2024-04-07 07:16] LABS: CALCIUM, SERUM 7.9 mg/dL (8.5-10.1); CARBON DIOXIDE 29 mmol/L (21-32); CHLORIDE 100 mmol/L (98-107); CREATININE 2.8 mg/dL (0.6-1.3); GLUCOSE 132 mg/dL (74-106); PHOSPHORUS 3.3 mg/dL (2.5-4.9); POTASSIUM 4.1 mmol/L (3.5-5.1); SODIUM SERUM 136 mmol/L (136-145); UREA NITROGEN, BLOOD 19 mg/dL (7-18)
[2024-04-07 08:36] VITALS: BP 134/71; TEMP 98; O2SAT 100
[2024-04-07] MEDS: CEFTRIAXONE 1 G in IV D5W 50 ML IV SCH (10:57)
[2024-04-07] MEDS: INSULIN REGULAR, HUMAN 100 UNIT/ML 3 ML VIAL SQ PRN (11:46)
[2024-04-07 13:01] VITALS: BP 136/58; TEMP 97.9; O2SAT 100
[2024-04-07 16:08] VITALS: BP 114/67; TEMP 98.4; O2SAT 99
[2024-04-07 20:00] VITALS: BP 130/60; TEMP 98.4; O2SAT 99
[2024-04-07] MEDS: ACETAMINOPHEN 325 MG TABLET PO PRN (22:23)
[2024-04-08 04:00] VITALS: BP 135/64; TEMP 98.4; O2SAT 100
[2024-04-08 06:48] LABS: BASOPHILS % (AUTO) 0.5 % (0.0-2.0); EOSINOPHILS # (AUTO) 0.3 K/uL (0.0-0.7); EOSINOPHILS % (AUTO) 5.6 % (0.0-6.0); HEMATOCRIT 25 % (33-45); LYMPHOCYTES # (AUTO) 0.6 K/uL (0.8-4.8); LYMPHOCYTES % (AUTO) 12.1 % (20.0-44.0); MEAN CORPUSCULAR HEMOGLOBIN 33 PG (26.0-33.0); MEAN CORPUSCULAR HGB CONC 33 g/dl (31.0-36.0); MEAN CORPUSCULAR VOLUME 101 fL (82-100); MONOCYTES # (AUTO) 0.4 K/uL (0.1-1.30); MONOCYTES % (AUTO) 7.9 % (2.0-12.0); NEUTROPHILS # (AUTO) 3.4 K/uL (1.8-8.9); NEUTROPHILS % (AUTO) 73.9 % (43.0-81.0); PLATELET COUNT (AUTO) 190 K/uL (150-450); RED BLOOD CELL COUNT(AUTO) 2.43 MIL/uL (4.0-5.2); RED CELL DISTRIBUTION WIDTH 19.2 % (11.5-15.0); WHITE BLOOD COUNT (AUTO) 4.6 K/uL (4.3-11.0)
[2024-04-08 07:14] LABS: CARBON DIOXIDE 27 mmol/L (21-32); CHLORIDE 101 mmol/L (98-107); CREATININE 3.3 mg/dL (0.6-1.3); GLUCOSE 126 mg/dL (74-106); POTASSIUM 4.7 mmol/L (3.5-5.1); SODIUM SERUM 136 mmol/L (136-145); UREA NITROGEN, BLOOD 29 mg/dL (7-18)
[2024-04-08 08:00] VITALS: BP 151/60; TEMP 98.2; O2SAT 94
[2024-04-08 12:35] LABS: IRON, SERUM 27 ug/dl (50-175); TOTAL IRON BINDING CAPACITY 144 ug/dl (250-450)
[2024-04-08 13:27] LABS: FERRITIN 2101 ng/mL (8-388)
[2024-04-08 16:00] VITALS: BP 141/55; TEMP 98.5; O2SAT 99
[2024-04-08 16:33] LABS: OCCULT BLOOD STOOL NEGATIVE (NEGATIVE)
[2024-04-09] VITALS: BP 132/63; TEMP 98; O2SAT 99
[2024-04-09 07:00] LABS: BASOPHILS % (AUTO) 0.7 % (0.0-2.0); EOSINOPHILS # (AUTO) 0.2 K/uL (0.0-0.7); EOSINOPHILS % (AUTO) 6.9 % (0.0-6.0); HEMATOCRIT 24 % (33-45); HEMOGLOBIN 7.6 g/dL (11.5-14.8); LYMPHOCYTES # (AUTO) 0.5 K/uL (0.8-4.8); LYMPHOCYTES % (AUTO) 13.1 % (20.0-44.0); MEAN CORPUSCULAR HEMOGLOBIN 32 PG (26.0-33.0); MEAN CORPUSCULAR HGB CONC 32 g/dl (31.0-36.0); MEAN CORPUSCULAR VOLUME 100 fL (82-100); MONOCYTES # (AUTO) 0.3 K/uL (0.1-1.30); MONOCYTES % (AUTO) 8.3 % (2.0-12.0); NEUTROPHILS # (AUTO) 2.6 K/uL (1.8-8.9); PLATELET COUNT (AUTO) 171 K/uL (150-450); RED BLOOD CELL COUNT(AUTO) 2.36 MIL/uL (4.0-5.2); RED CELL DISTRIBUTION WIDTH 18.8 % (11.5-15.0); WHITE BLOOD COUNT (AUTO) 3.6 K/uL (4.3-11.0)
[2024-04-09 07:57] LABS: CARBON DIOXIDE 31 mmol/L (21-32); CHLORIDE 103 mmol/L (98-107); CREATININE 2.5 mg/dL (0.6-1.3); GLUCOSE 111 mg/dL (74-106); POTASSIUM 3.5 mmol/L (3.5-5.1); SODIUM SERUM 139 mmol/L (136-145); UREA NITROGEN, BLOOD 18 mg/dL (7-18)
[2024-04-09 08:00] VITALS: BP 121/55; TEMP 98.8; O2SAT 100
[2024-04-09] MEDS ORDERED: CIPR500T5 PO (09:37)
[2024-04-09 16:00] VITALS: BP 163/61; TEMP 97.3; O2SAT 96
== END 2024-04-09 20:45 | DRG 291 ==
LOC: ER 15:05 → TELE1 16:04 → MEDSG1 21:13
PROVIDERS: ADMIT Nurse Practitioner Acute Care; ATTEND Nurse Practitioner Acute Care
PROC: 30233N1 Transfusion of Nonautologous Red Blood Cells into Peripheral Vein, Percutaneous Approach (ICD-10-PCS; principal; 2024-04-06)
PROC: 5A1D70Z Performance of Urinary Filtration, Intermittent, Less than 6 Hours Per Day (ICD-10-PCS; 2024-04-06)
PROC: 05HC33Z Insertion of Infusion Device into Left Basilic Vein, Percutaneous Approach (ICD-10-PCS; 2024-04-06)
PROC: B54NZZA Ultrasonography of Left Upper Extremity Veins, Guidance (ICD-10-PCS; 2024-04-06)
DX: I13.2 Hypertensive heart and chronic kidney disease with heart failure and with stage 5 chronic kidney disease, or end stage renal disease (principal); N18.6 End stage renal disease; D68.59 Other primary thrombophilia; J96.11 Chronic respiratory failure with hypoxia; J96.12 Chronic respiratory failure with hypercapnia; I69.354 Hemiplegia and hemiparesis following cerebral infarction affecting left non-dominant side; E66.2 Morbid (severe) obesity with alveolar hypoventilation; F01.53 Vascular dementia, unspecified severity, with mood disturbance; N39.0 Urinary tract infection, site not specified; D63.1 Anemia in chronic kidney disease; I42.9 Cardiomyopathy, unspecified; I50.9 Heart failure, unspecified; F32.A Depression, unspecified; M89.8X9 Other specified disorders of bone, unspecified site; Z79.4 Long term (current) use of insulin; Z79.82 Long term (current) use of aspirin; Z99.2 Dependence on renal dialysis; E11.22 Type 2 diabetes mellitus with diabetic chronic kidney disease; D53.9 Nutritional anemia, unspecified; H40.9 Unspecified glaucoma; Z74.09 Other reduced mobility; Z68.35 Body mass index [BMI] 35.0-35.9, adult; R00.1 Bradycardia, unspecified; B96.89 Other specified bacterial agents as the cause of diseases classified elsewhere
CPT/HCPCS: 36415; 71045-TC; 71250-TC; 80048-TC; 80076-TC; 81001; 82272-TC; 82607-TC; 82728-TC; 82962-TC; 83540-TC; 83735-TC; 84100-TC; 85025-TC; 85045-TC; 85730-TC; 86850-TC; 87081-TC; 90935-TC; C9113; G0378; J0696; J1815; J7030; J7050; J7060; P9016

== ENCOUNTER 2024-05-25 06:04 | Inpatient (IN) | payer MEDICARE, OTHER ==
[~2024-05-25] VITALS: Ht 154.9 cm; Wt 87.5 kg
[~2024-05-25 06:04] MED LIST changes: +CIPR500T5 PO
[2024-05-25 07:05] LABS: BASOPHILS % (AUTO) 0.8 % (0.0-2.0); EOSINOPHILS # (AUTO) 0.2 K/uL (0.0-0.7); EOSINOPHILS % (AUTO) 3.8 % (0.0-6.0); HEMATOCRIT 37 % (33-45); HEMOGLOBIN 11.7 g/dL (11.5-14.8); LYMPHOCYTES # (AUTO) 0.5 K/uL (0.8-4.8); LYMPHOCYTES % (AUTO) 11.2 % (20.0-44.0); MEAN CORPUSCULAR HEMOGLOBIN 33 PG (26.0-33.0); MEAN CORPUSCULAR HGB CONC 32 g/dl (31.0-36.0); MEAN CORPUSCULAR VOLUME 104 fL (82-100); MONOCYTES # (AUTO) 0.3 K/uL (0.1-1.30); MONOCYTES % (AUTO) 6.1 % (2.0-12.0); NEUTROPHILS # (AUTO) 3.8 K/uL (1.8-8.9); NEUTROPHILS % (AUTO) 78.1 % (43.0-81.0); PLATELET COUNT (AUTO) 197 K/uL (150-450); RED BLOOD CELL COUNT(AUTO) 3.57 MIL/uL (4.0-5.2); RED CELL DISTRIBUTION WIDTH 18.1 % (11.5-15.0); WHITE BLOOD COUNT (AUTO) 4.9 K/uL (4.3-11.0)
[2024-05-25 07:33] LABS: INR 1.04 (0.91-1.10); MAGNESIUM 2.2 mg/dL (1.8-2.4); PARTIAL THROMBOPLASTIN TIME 31.9 SEC (24.3-34.3)
[2024-05-25 07:34] LABS: CALCIUM, SERUM 8.3 mg/dL (8.5-10.1); CARBON DIOXIDE 27 mmol/L (21-32); CHLORIDE 100 mmol/L (98-107); CREATININE 2.9 mg/dL (0.6-1.3); GLUCOSE 146 mg/dL (74-106); POTASSIUM 3.5 mmol/L (3.5-5.1); SODIUM SERUM 137 mmol/L (136-145); UREA NITROGEN, BLOOD 26 mg/dL (7-18)
[2024-05-25 07:40] LABS: ALANINE AMINOTRANSFERASE 18 U/L (12-78); ALBUMIN 3.8 g/dL (3.4-5.0); ALKALINE PHOSPHATASE 165 U/L (46-116); ASPARTATE AMINOTRANSFERASE 27 U/L (15-37); BILIRUBIN,DIRECT 0.2 mg/dL (0.0-0.2); BILIRUBIN,TOTAL 0.5 mg/dL (0.2-1.0); TOTAL PROTEIN, SERUM 8.5 g/dL (6.4-8.2)
[2024-05-25 07:54] LABS: THYROID STIMULATING HORMONE 3.99 uIU/mL (0.358-3.74)
[2024-05-25] MEDS ORDERED: VITA1TAB56 PO (09:00)
[2024-05-25] MEDS ORDERED: ASPIRIN 81 MG TAB.CHEW ONE (09:44)
[2024-05-25] MEDS: ASPIRIN 81 MG TAB.CHEW PO ONE (09:47)
[2024-05-25] MEDS ORDERED: BISACODYL SUPP (10 MG) 10 MG/SUPP.RECT SUPP.RECT RC PRN (10:00)
[2024-05-25] MEDS ORDERED: DEXTROSE 50%-WATER 50 ML DISP.SYRIN IV PRN (10:00)
[2024-05-25] MEDS ORDERED: MAG HYDROX/AL HYDROX/SIMETH 30 ML UDC PO PRN (10:00)
[2024-05-25] MEDS ORDERED: ACETAMINOPHEN 325 MG TABLET PO PRN ×2 (10:00)
[2024-05-25] MEDS ORDERED: MAGNESIUM HYDROXIDE 30 ML UDC PO PRN (10:00)
[2024-05-25] MEDS ORDERED: ONDANSETRON HCL/PF 4 MG/2 ML VIAL IVP PRN (10:00)
[2024-05-25] MEDS ORDERED: Z GUARD REMEDY 4 OZ OINT TP PRN (10:00)
[2024-05-25] MEDS: BLOOD SUGAR DIAGNOSTIC 1 EACH STRIP VI SCH (12:32)
[2024-05-25] MEDS: GABAPENTIN 100 MG CAPSULE PO SCH (14:12)
[2024-05-25] MEDS: METOPROLOL TARTRATE 25 MG TABLET PO SCH (14:12)
[2024-05-25] MEDS: ISOSORBIDE DINITRATE (10MG) 10 MG TABLET PO SCH (14:12)
[2024-05-25] MEDS: SEVELAMER CARBONATE 800 MG TABLET PO SCH (14:18)
[2024-05-25 16:00] VITALS: BP 156/44; TEMP 98.6; O2SAT 92
[2024-05-25] MEDS: *INSULIN REGULAR(HUMULIN R)HUM 100 UNIT/ML VIAL SQ PRN (17:07)
[2024-05-25] MEDS: SENNOSIDES 8.6 MG TABLET PO SCH (17:56)
[2024-05-25 20:00] VITALS: BP 141/59; TEMP 98.6; O2SAT 97; O2SAT 98
[2024-05-25] MEDS: ESCITALOPRAM OXALATE (10 MG) 10 MG TABLET PO SCH (21:18)
[2024-05-25] MEDS: INSULIN GLARGINE, 100 UNIT/ML CARTRIDGE SQ SCH (21:22)
[2024-05-25 21:45] VITALS: BP 141/59; TEMP 98.6; O2SAT 98
[2024-05-26] VITALS (9 sets, daily range): BP systolic 121–155; BP diastolic 46–88; TEMP 97.7–99.1; O2SAT 94–100
[2024-05-26] MEDS: INSULIN REGULAR, HUMAN 100 UNIT/ML 3 ML VIAL SQ PRN (06:39)
[2024-05-26 06:51] LABS: BASOPHILS % (AUTO) 0.8 % (0.0-2.0); EOSINOPHILS # (AUTO) 0.2 K/uL (0.0-0.7); HEMATOCRIT 34 % (33-45); HEMOGLOBIN 10.9 g/dL (11.5-14.8); LYMPHOCYTES # (AUTO) 0.8 K/uL (0.8-4.8); LYMPHOCYTES % (AUTO) 14.4 % (20.0-44.0); MEAN CORPUSCULAR HEMOGLOBIN 33 PG (26.0-33.0); MEAN CORPUSCULAR HGB CONC 32 g/dl (31.0-36.0); MEAN CORPUSCULAR VOLUME 105 fL (82-100); MONOCYTES # (AUTO) 0.3 K/uL (0.1-1.30); MONOCYTES % (AUTO) 6.2 % (2.0-12.0); NEUTROPHILS % (AUTO) 74.6 % (43.0-81.0); PLATELET COUNT (AUTO) 172 K/uL (150-450); RED BLOOD CELL COUNT(AUTO) 3.28 MIL/uL (4.0-5.2); RED CELL DISTRIBUTION WIDTH 17.9 % (11.5-15.0); WHITE BLOOD COUNT (AUTO) 5.3 K/uL (4.3-11.0)
[2024-05-26 07:34] LABS: CALCIUM, SERUM 7.6 mg/dL (8.5-10.1); CARBON DIOXIDE 21 mmol/L (21-32); CHLORIDE 101 mmol/L (98-107); CREATININE 3.4 mg/dL (0.6-1.3); GLUCOSE 111 mg/dL (74-106); MAGNESIUM 2.3 mg/dL (1.8-2.4); PHOSPHORUS 4.9 mg/dL (2.5-4.9); POTASSIUM 4.4 mmol/L (3.5-5.1); SODIUM SERUM 135 mmol/L (136-145); UREA NITROGEN, BLOOD 36 mg/dL (7-18)
[2024-05-26] MEDS: PANTOPRAZOLE 40 MG TABLET.DR PO SCH (08:00)
[2024-05-26 08:30] LABS: PLATELET ESTIMATE ADEQUATE
[2024-05-26 08:31] LABS: ANISOCYTOSIS 1+; STOMATOCYTES 1+
[2024-05-26] MEDS: ASPIRIN 81 MG TAB.CHEW PO SCH (08:33)
[2024-05-26] MEDS: AMLODIPINE BESYLATE 10 MG TABLET PO SCH (09:09)
[2024-05-27] VITALS (7 sets, daily range): BP systolic 116–158; BP diastolic 44–50; TEMP 98.4–98.8; O2SAT 97–100
[2024-05-27 06:26] LABS: CALCIUM, SERUM 7.4 mg/dL (8.5-10.1); CARBON DIOXIDE 31 mmol/L (21-32); CHLORIDE 100 mmol/L (98-107); GLUCOSE 108 mg/dL (74-106); POTASSIUM 3.8 mmol/L (3.5-5.1); SODIUM SERUM 132 mmol/L (136-145); UREA NITROGEN, BLOOD 24 mg/dL (7-18)
[2024-05-27 07:01] LABS: BASOPHILS % (AUTO) 0.7 % (0.0-2.0); EOSINOPHILS # (AUTO) 0.2 K/uL (0.0-0.7); EOSINOPHILS % (AUTO) 3.9 % (0.0-6.0); HEMATOCRIT 38 % (33-45); HEMOGLOBIN 11.4 g/dL (11.5-14.8); LYMPHOCYTES # (AUTO) 0.6 K/uL (0.8-4.8); LYMPHOCYTES % (AUTO) 11.8 % (20.0-44.0); MEAN CORPUSCULAR HEMOGLOBIN 33 PG (26.0-33.0); MEAN CORPUSCULAR HGB CONC 30 g/dl (31.0-36.0); MEAN CORPUSCULAR VOLUME 109 fL (82-100); MONOCYTES # (AUTO) 0.5 K/uL (0.1-1.30); MONOCYTES % (AUTO) 9.8 % (2.0-12.0); NEUTROPHILS # (AUTO) 3.6 K/uL (1.8-8.9); NEUTROPHILS % (AUTO) 73.8 % (43.0-81.0); PLATELET COUNT (AUTO) 133 K/uL (150-450); RED BLOOD CELL COUNT(AUTO) 3.46 MIL/uL (4.0-5.2); RED CELL DISTRIBUTION WIDTH 18.3 % (11.5-15.0); WHITE BLOOD COUNT (AUTO) 4.9 K/uL (4.3-11.0)
[2024-05-28] VITALS: BP 165/53; TEMP 97.5; O2SAT 100
[2024-05-28 04:00] VITALS: BP 167/54; TEMP 97.8; O2SAT 98
[2024-05-28 07:47] VITALS: O2SAT 99
[2024-05-28 08:27] VITALS: BP 172/58; TEMP 98.2; O2SAT 98
[2024-05-28 12:00] VITALS: BP 177/58; TEMP 98.1; O2SAT 95
[2024-05-28 16:23] VITALS: BP 194/75
[2024-05-28] MEDS: hydrALAZINE HCL 10 MG TABLET PO PRN (16:23)
== END 2024-05-28 18:00 | DRG 280 ==
LOC: ER 06:13 → TRANSITION 12:30 → TELE 12:45
PROVIDERS: ADMIT Internal Medicine; ATTEND Internal Medicine
PROC: 5A1D70Z Performance of Urinary Filtration, Intermittent, Less than 6 Hours Per Day (ICD-10-PCS; principal; 2024-05-26)
DX: R00.8 Other abnormalities of heart beat (principal); N18.6 End stage renal disease; I21.A1 Myocardial infarction type 2; I69.354 Hemiplegia and hemiparesis following cerebral infarction affecting left non-dominant side; I13.2 Hypertensive heart and chronic kidney disease with heart failure and with stage 5 chronic kidney disease, or end stage renal disease; I50.9 Heart failure, unspecified; E11.22 Type 2 diabetes mellitus with diabetic chronic kidney disease; Z79.82 Long term (current) use of aspirin; Z99.2 Dependence on renal dialysis; Z79.4 Long term (current) use of insulin; I49.3 Ventricular premature depolarization; N25.0 Renal osteodystrophy; Z20.822 Contact with and (suspected) exposure to COVID-19
CPT/HCPCS: 36415; 71045-TC; 80048-TC; 80076-TC; 82962-TC; 83735-TC; 83880; 84100-TC; 84443-TC; 84484-TC; 85025-TC; 85730-TC; 90935-TC; 93307-TC; 94799-TC; G0378; J1815